=== PATIENT | female | born 1990 | race Caucasian/White ===

== ENCOUNTER 2022-11-19 10:55 | Outpatient (REF) | payer BC, SELFPAY ==
[2022-11-19 11:10] LABS: MANUAL DIFF FLAG NO
[2022-11-19 11:27] LABS: Basophils Percent Auto 0.5 % (0-2); Eosinophils Absolute Auto 0.2 X10*3/uL (0.0-0.4); Eosinophils Percent Auto 2.6 % (0-4); Hematocrit 40.5 % (37.0-47.0); Hemoglobin 13.5 g/dl (12.0-16.0); Imm Gran Abs Auto 0.02 X10*3/uL (0.00-0.03); Imm Gran Pct Auto 0.3 % (0.0-0.4); Lymphocytes Percent Auto 33.8 % (20-40); Mean Corpuscular HGB Conc 33.3 g/dl (31.0-35.0); Mean Corpuscular Hemoglobin 31.2 pg (27.0-33.0); Mean Corpuscular Volume 93.5 fL (80.0-98.0); Mean Platelet Volume 10.9 fL (9.4-12.3); Monocytes Absolute Auto 0.4 X10*3/uL (0.1-1.2); Monocytes Percent Auto 6.8 % (2-11); Neutrophils Absolute Auto 3.4 x10*3/uL (2.0-8.3); Platelet Count 224 X10*3/uL (160-400); Red Blood Count 4.33 X10*6/uL (4.20-5.50); Red Cell Distribution Width 11.9 % (11.0-16.0)
[2022-11-19 11:28] LABS: Appearance Urine Clear; Color Urine Yellow; Glucose Urine UA Negative (Negative); Leukocyte Esterase Urine Trace (Negative); Nitrite Urine Negative (Negative); PH 6.5 (5.0-9.0); UMIC TRIGGER UACC YES; Urine Blood Negative (Negative); Urine Ketones Negative (Negative); Urine Protein Negative (Neg-Trace)
[2022-11-19 11:41] LABS: Bacteria Urine 1+ (None Seen); Hyaline Casts Urine 0-2 /LPF (0-2); WBC Urine 0-5 /HPF (0-5)
[2022-11-19 12:02] LABS: Alanine Aminotransferase 15 U/L (0-31); Alkaline Phosphatase 52 U/L (39-117); Anion Gap 11 (12-20); Aspartate Amino Transferase 18 U/L (5-31); Bilirubin Total 0.7 mg/dL (0.0-1.0); Blood Urea Nitrogen 11 mg/dL (9-16); Calcium 9.3 mg/dL (8.4-10.2); Carbon Dioxide 27 mmol/L (22-29); Chloride 106 mmol/L (96-108); Cholesterol 135 mg/dL; Estimated Glomerular Filt Rate > 60; Glucose Fasting 84 mg/dL (60-99); HDL Cholesterol 72 mg/dL; LDL Cholesterol Calculated 49 mg/dl; Potassium 3.9 mmol/L (3.3-5.1); Sodium 140 mmol/L (135-145); Total Protein 6.4 g/dL (6.5-8.0); Triglycerides 72 mg/dL
== END 2022-11-19 10:56 | disposition home or self-care (01) ==
LOC: HO.LNP 10:55
PROVIDERS: Visit Provider Internal Medicine
DX: Z00.00 Encounter for general adult medical examination without abnormal findings (principal)
CPT/HCPCS: 80053; 80061; 81001; 85025

== ENCOUNTER 2022-11-22 12:37 | Outpatient (REF) | payer BC, SELFPAY ==
[2022-11-22 13:22] LABS: Appearance Urine Clear; Color Urine Yellow; Glucose Urine UA Negative (Negative); Leukocyte Esterase Urine Negative (Negative); Nitrite Urine Negative (Negative); PH 6.5 (5.0-9.0); Specific Gravity - Urine <= 1.005 (1.005-1.025); Urine Blood Negative (Negative); Urine Ketones Negative (Negative); Urine Protein Negative (Neg-Trace)
[2022-11-22 13:26] LABS: Bacteria Urine None Seen (None Seen); Hyaline Casts Urine 0-2 /LPF (0-2); RBC Urine 0-2 /HPF (0-2); Squamous Epithelial Cell Urine 0-2 /HPF (0-2); WBC Urine 0-5 /HPF (0-5)
== END 2022-11-22 12:38 | disposition home or self-care (01) ==
LOC: HO.LNP 12:37
PROVIDERS: Visit Provider Internal Medicine
DX: R31.9 Hematuria, unspecified (principal)
CPT/HCPCS: 81001

== ENCOUNTER 2023-11-21 10:49 | Outpatient (REF) | payer BC, SELFPAY ==
[2023-11-21 10:51] LABS: MANUAL DIFF FLAG NO
[2023-11-21 11:04] LABS: Appearance Urine Clear; Color Urine Yellow; Glucose Urine UA Negative (Negative); Leukocyte Esterase Urine Negative (Negative); Nitrite Urine Negative (Negative); Specific Gravity - Urine 1.025 (1.005-1.025); UMIC TRIGGER UACC YES; Urine Blood Trace (Negative); Urine Ketones 15 mg/dL (Negative); Urine Protein Negative (Neg-Trace)
[2023-11-21 11:09] LABS: Basophils Percent Auto 0.7 % (0-2); Eosinophils Absolute Auto 0.2 X10*3/uL (0.0-0.4); Eosinophils Percent Auto 2.8 % (0-4); Hematocrit 42.9 % (37.0-47.0); Hemoglobin 14.4 g/dl (12.0-16.0); Imm Gran Abs Auto 0.02 X10*3/uL (0.00-0.03); Imm Gran Pct Auto 0.3 % (0.0-0.4); Lymphocytes Absolute Auto 1.8 X10*3/uL (1.2-4.9); Lymphocytes Percent Auto 28.9 % (20-40); Mean Corpuscular HGB Conc 33.6 g/dl (31.0-35.0); Mean Corpuscular Hemoglobin 31.6 pg (27.0-33.0); Mean Corpuscular Volume 94.1 fL (80.0-98.0); Mean Platelet Volume 11.6 fL (9.4-12.3); Monocytes Absolute Auto 0.6 X10*3/uL (0.1-1.2); Neutrophils Absolute Auto 3.5 x10*3/uL (2.0-8.3); Neutrophils Percent Auto 57.3 % (45-73); Platelet Count 192 X10*3/uL (160-400); Red Blood Count 4.56 X10*6/uL (4.20-5.50); Red Cell Distribution Width 11.7 % (11.0-16.0); White Blood Count 6.1 X10*3/uL (4.8-10.8)
[2023-11-21 11:11] LABS: Bacteria Urine 1+ (None Seen); WBC Urine 0-5 /HPF (0-5)
[2023-11-21 11:16] LABS: Alanine Aminotransferase 14 U/L (0-31); Albumin Level 4.4 g/dL (3.5-5.0); Alkaline Phosphatase 54 U/L (39-117); Anion Gap 12 (12-20); Aspartate Amino Transferase 13 U/L (5-31); Bilirubin Total 0.5 mg/dL (0.0-1.0); Blood Urea Nitrogen 13 mg/dL (9-16); Calcium 9.5 mg/dL (8.4-10.2); Carbon Dioxide 24 mmol/L (22-29); Chloride 109 mmol/L (96-108); Cholesterol 134 mg/dL (<200); Estimated Glomerular Filt Rate > 60; Glucose Fasting 82 mg/dL (60-99); HDL Cholesterol 71 mg/dL (>40); LDL Cholesterol Calculated 49 mg/dL (<100); Sodium 141 mmol/L (135-145); Total Protein 6.9 g/dL (6.5-8.0); Triglycerides 73 mg/dL (<150)
== END 2023-11-21 10:50 | disposition home or self-care (01) ==
LOC: HO.LNP 10:49
PROVIDERS: Visit Provider Internal Medicine
DX: Z00.00 Encounter for general adult medical examination without abnormal findings (principal)
CPT/HCPCS: 80053; 80061; 81001; 85025

== ENCOUNTER 2024-05-12 12:57 | Outpatient (REF) | payer BC, SELFPAY ==
[2024-05-12 15:41] LABS: C Reactive Protein < 0.04 mg/dL (< or = 0.50)
[2024-05-12 15:56] LABS: TSH reflex Free T4 0.91 uIU/mL (0.32-4.0)
[2024-05-12 16:10] LABS: Folate 12.6 ng/mL (> or = 4.0); Vitamin B12 359 pg/mL (200-900)
--- OUTSIDE RECORDS SUMMARY | 2024-05-12 16:15 | XMS_ITS | Data Portability ---
Author Organization MORIS Phillips [address] Address [address] [place] [address] Care Team Providers Care Filter Tender Name Role Phone AAMIR CHONG Primary Care Provider Assessment Encounter Date Assessment Date Assessment LastModified by Organization Details LastModified Time 03/22/2024 03/22/2024 Patient was seen in the office today for nausea. Reviewed history regarding recent illness, medications, symptoms, and physical exam. Studies ordered as below. Discussed plan with patient, who expresses understanding. Follow up as noted below. Based on you exam and presentation I am diagnosing you with a viral gastroenteritis. This should resolve on its own without any intervention in 1-5 days. This may be contagious to try and avoid family members while you are sick. Use a seperate bathroom if possible. These are my recommendations to help with your symptoms and help you recover: 1. Drink plenty of fluid and stay hydrated. 2. Wash hands and home surfaces regularly. 3. Do not share food or drinks 4. Try to eat foods like toast, chicken broth, bananas. 5. Stay away from Gatorade, but you can drink pedialyte, soda, or water. 6. Avoid Dairy I would be seen again if you develop: 1. Severe abdominal pain 2. Vomiting more than 48 hours 3. Fever > 101.0 4. Blood in Stool 5. Blood in Urine. Thank you for using [employer], please feel free to contact us if you have any questions or concerns. darvin Not available 03/22/2024 20:13:31 Plan of Treatment Reminders Order Date Submit Date Provider Last Modified By Organization Details Last Modified Time Details Appointments None recorded. Lab urinalysis, dipstick 2023 024 EMELI mendoza [address], [address] [place], [address], 20:16:39 test, urine 2023 EMELI mendoza [address], [address] [place], [address], 20:16:59 Referral None recorded. Procedures None recorded. Surgeries None recorded. Imaging None recorded. Medication Orders Imodium A-D 2 mg tablet 2023 [id number], [address], [place], [id number], 4 20:13:40 ondansetron 4 mg disintegrat ing tablet 2023 [id number], [address], [place], [id number], 4 20:13:42 omeprazole 40 mg capsule,del ayed release 2023 [id number], [address], [place], [id number], 4 20:13:42 Patient TargetsNo targets recorded. Patient Instructions Encounter Date Encounter Id Patient Instructions Last Modified By Organization Details Last Modified Time 03/22/2024 [id number] nausea and vomiting: care instructions ronchaga Not available 03/22/2024 20:13:34 diarrhea: care instructions ronchaga Not available 03/22/2024 20:13:34 nausea and vomiting: care instructions ronchaga Not available 03/22/2024 20:13:33 Try small amounts of clear liquids frequently. If vomiting occurs, wait 30-60 minutes before trying clear liquids again. Once you are able to tolerate clear liquids for at least 6 hours without vomiting, you can advance to a soft diet consisting of foods such as bananas, rice, applesauce, toast, crackers, and other foods rich in carbohydrates and low on fats and spices. If the diet is tolerated for 12-24 hours, you can slowly add other foods to your diet. If vomiting occurs, you should go back to clear liquids only and work your way back to a normal diet as outlined above. If much worse, you should seek treatment immediately. fckatia Not available 03/22/2024 19:36:02 Reason for Referral None Reported. Results Created Date Observation Date Name Description Value Unit Range Abnormal Flag Note LastModifiedBy Organization Detail LastModifiedTime 03/22/20 24 03/22/2024 pregn ronaldo test, urine Unknown Analyte negati ve Not Available [address], [address], 03/22/2024 19:45:17 03/22/20 24 03/22/2024 pregn ronaldo test, urine Unknown Analyte N Not Available [address], [address], 03/22/2024 19:45:17 03/22/20 24 03/22/2024 pregn ronaldo test, urine Unknown Analyte YES Not Available [address], [address], 03/22/2024 19:45:17 03/22/20 24 03/22/2024 urina lysis , dipst ick Unknown Analyte Normal = light yellow Not Available [address], [address], 03/22/2024 19:44:45 03/22/20 24 03/22/2024 urina lysis , dipst ick Unknown Analyte Normal = clear Not Available [address], [address], 03/22/2024 19:44:45 03/22/20 24 03/22/2024 urina lysis , dipst ick Unknown Analyte Normal = negati ve Not Available [facility] [address] [place] [address], [address], 03/22/2024 19:44:45 03/22/2003/22/2024 urina lysis , dipst ick Unknown Analyte Negati ve Not Available [facility] [address] [place] [address], [address], 03/22/2024 19:44:45 03/22/2003/22/2024 urina lysis , dipst ick Unknown Analyte Normal = Negati ve Not Available [facility] [address] [address] [place] [address], [address], 03/22/2024 19:44:45 03/22/2003/22/2024 urina lysis , dipst ick Unknown Analyte Negati ve Not Available [facility] [address] [place] [address], [address], 03/22/2024 19:44:45 03/22/20 24 03/22/2024 urina lysis , dipst ick Unknown Analyte Normal = Negati ve Not Available [facility] [address] [place] [address], [address], 03/22/2024 19:44:45 03/22/20 24 03/22/2024 urina lysis , dipst ick Unknown Analyte Normal = 1.010, 1.015, 1.020 Not Available [facility] [address] [place] [address], [address], 03/22/2024 19:44:45 03/22/2003/22/2024 urina lysis , dipst ick Unknown Analyte Normal = Negati ve Not Available [facility] [address] [place] [address], [address], 03/22/2024 19:44:45 1203/22/2024 urina lysis , dipst ick Unknown Analyte Small Not Available [facility] [address] [place] [address], [address], 03/22/2024 19:44:45 03/22/20 24 03/22/2024 urina lysis , dipst ick Unknown Analyte Normal = 6.5, 7.0, 7.5, 8.0 Not Available [facility] [address] [place] [address], [address], 03/22/2024 19:44:45 03/22/2003/22/2024 urina lysis , dipst ick Unknown Analyte Normal = Negati ve Not Available [facility] [address] [place] [address], [address], 03/22/2024 19:44:45 03/22/20 24 03/22/2024 urina lysis , dipst ick Unknown Analyte Normal = 0.2, 1.0 Not Available [facility] [address] [place] [address], [address], 03/22/2024 19:44:45 03/22/20 24 03/22/2024 urina lysis , dipst ick Unknown Analyte Normal = Negati ve Not Available [facility] [address] [place] [address], [address], 03/22/2024 19:44:45 03/22/20 24 03/22/2024 urina lysis , dipst ick Unknown Analyte Negati ve Not Available [facility] [address] [place] [address], [address], 03/22/2024 19:44:45 03/22/20 24 03/22/2024 urina lysis , dipst ick Unknown Analyte Normal = Negati ve Not Available [facility] [address] [place] [address], [address], 03/22/2024 19:44:45 03/22/20 24 03/22/2024 urina lysis , dipst ick Unknown Analyte Negati ve Not Available [facility] [address] [place] [address], [phone], 03/22/2024 19:44:45 03/22/20 24 03/22/2024 urina lysis , dipst ick Unknown Analyte Yellow Not Available [facility], [address], 03/22/2024 19:44:45 03/22/20 24 03/22/2024 urina lysis , dipst ick Unknown Analyte Clear Not Available [address], [address], 03/22/2024 19:44:45 03/22/20 24 03/22/2024 urina lysis , dipst ick Unknown Analyte Negati ve Not Available [facility] [address] [place] [address], [address], 03/22/2024 19:44:45 03/22/20 24 03/22/2024 urina lysis , dipst ick Unknown Analyte 1.015 Not Available [address], [address], 03/22/2024 19:44:45 03/22/20 24 03/22/2024 urina lysis , dipst ick Unknown Analyte 5.5 Not Available [address], [address], 03/22/2024 19:44:45 03/22/20 24 03/22/2024 urina lysis , dipst ick Unknown Analyte Negati ve Not Available [facility] [address] [place] [address], [address], 03/22/2024 19:44:45 03/22/2003/22/2024 urina lysis , dipst ick Unknown Analyte 0.2 E.U./d L Not Available [address] [place] [place], [address], 03/22/2024 19:44:45 Result Notes None recorded. Problems Name Problem SNOMED Code Status Onset Date Resolution Date Notes Provider Name and Address Organization Details Recorded Time Viral gastroenteriti s 512853484 Active 2023 ERIC SURESH NP [address] , [place], [address], [place] - [facility] 4 20:10:01 Nausea and vomiting 25850596 Active 2023 ERIC SURESH NP [address] , [place], [address], [place] - [facility] 4 20:10:21 Diarrhea 11172788 Active 2023 ERIC SURESH NP [address] , [place], [address], [place] - [facility] 4 20:10:47 Acute gastritis 64705929 Active 2023 ERIC SURESH NP [address] , [place], [address], [place] - [facility] 4 20:12:33 Problem Notes None recorded. Medical Equipment None Reported. Allergies No known drug allergies Medications Name Sig Start Date Stop Date Status Note LastModified by Organization Details LastModified Time omeprazole 40 mg capsule,del ayed release Take 1 capsule every day by oral route for 14 days. 2023 active Not Available Not Available Not Avai lable Imodium A-D 2 mg tablet Take 1 tablet 4 times a day by oral route for 3 days. 2023 active Not Available Not Available Not Avai lable hyoscyamine ER 0.375 mg tablet,exte nded release,12 hr TAKE 1 TABLET BY MOUTH EVERY 12 HOURS X 7 DAYS 03/22 completed Not Available Not Available Not Available ondansetron 4 mg disintegrat ing tablet Place 1 tablet 3 times a day by transling ual route for 5 days. 2023 active Not Available Not Available Not Avai lable Vitals Date Recorded Body height Provider Name an d Address Organization Details Last Updated DateTime 03/22/2024 160.02 cm Juvencio Davies PA - [facility] 03/22/2024 19:38:45 Date Recorded Body mass index (BMI) Body weight Provider Name and Address Organization Details Last Updated DateTime 03/22/2024 24.8 kg/m2 26517.93 g Juvencio Davies PA - [facility] 03/22/2024 19:38:52 Date Recorded Oxygen saturation Oxygen saturation in Arterial blood by Pulse oximetry Provider Name and Address Organization Details Last Updated DateTime 03/22/2024 99 % 99 % Juvencio Davies PA - [facility] 03/22/2024 19:40:01 Date Recorded Heart rate Provider Name an d Address Organization Details Last Updated DateTime 03/22/2024 99 /min Juvencio Davies PA - [facility] 03/22/2024 19:40:57 Date Recorded Respiratory rate Provider Name a nd Address Organization Details Last Updated DateTime 03/22/2024 18 /min Juvencio Davies PA - [facility] 03/22/2024 19:40:59 Date Recorded Body temperature Provider Name a nd Address Organization Details Last Updated DateTime 03/22/2024 97 [degF] Juvencio Davies PA - [facility] 03/22/2024 19:41:05 Date Recorded Systolic blood pressure Diastolic blood pressure Provider Name and Address Organization Details Last Updated DateTime 03/22/2024 93 mm[Hg] 59 mm[Hg] Juvencio Davies PA - [facility] 03/22/2024 19:39:58 Social History Question Answer Notes LastModified by Organizat ion Details LastModified Time Tobacco Smoking Status Never Smoker Juvencio hurt PA - [facility] 03/22/2024 19:43:13 Are You Currently Employed? Yes [employer] Information not available 03/22/2024 Have You Had A Flu Shot This Season? No Information not available 03/22/2024 If No, Would You Like A Flu Shot Today? No Information not available 03/22/2024 What Is Your Water Source? City Information not available 03/22/2024 What Is Your Heat Source? Gas Information not available 03/22/2024 What Is Your Relationship Status? Single Information not available 03/22/2024 Do You Use Any Illicit Or Recreational Drugs? No Information not available 03/22/2024 Have You Recently Traveled Abroad? No Information not available 03/22/2024 Sex: Unknown Functional Status None recorded. Mental Status None recorded. Family History Relationship Description Onset Age of this Age Resolved Age Notes LastModified by Organization Details LastModified Time Father No current problems or disability fcuevasgonzal ez Not available 03/22/2024 19:42:49 Mother No current problems or disability fcuevasgonzal ez Not available 03/22/2024 19:42:49 Medical History No medical history recorded. Gynecological History Statement/Question Response Is there any chance of ? No Obstetrics History GPAL:G 0 P 0 0 0 0 Immunizations Vaccine Type Date Status Note Provider Nam e and Address Organization Details Recorded Time COVID-19, mRNA, LNP-S, PF, 30 mcg/0.3 mL dose 07/29/2020 completed Juvencio hurt, [place] - [facility] 03/22/2024 19:41:11 COVID-19, mRNA, LNP-S, PF, 30 mcg/0.3 mL dose 08/19/2020 completed Juvencio hurt, [place] - [facility] 03/22/2024 19:41:12 COVID-19, mRNA, LNP-S, PF, 30 mcg/0.3 mL dose, lorena-sucrose 05/30/2021 completed Juvencio hurt, [place] - [facility] 03/22/2024 19:41:12 Tdap 10/12/2013 completed MORIS Clayton - [facility] 03/22/2024 19:41:12 Past Encounters Encounter ID Performer Location Encounter Start Date Encounter Closed Date Diagnosis/Indication Diagnosis SNOMED-CT Code Diagnosis ICD10 Code Diagnosis Note [id number] [address] [place] [address] 03/15/2017 11:30:01 03/15/2017 12:38:47 [id number] [address] [place] [address] 12/09/2018 11:57:02 12/09/2018 13:11:27 [id number] [address] [place] [address] 12/16/2020 14:44:33 12/16/2020 16:21:49 [id number] [address] [place] [address] 10/19/2017 18:03:54 10/19/2017 18:39:46 [id number] [address] [place] [address] 03/23/2019 17:40:37 03/23/2019 18:44:42 [id number] [address] [place] [address] 04/20/2020 18:05:29 04/20/2020 19:44:58 [id number] [address] [place] [phone] 09/05/2017 09:49:31 09/05/2017 11:56:51 [id number] ERIC SURESH NP [address] [place] [address] 03/22/2024 19:17:22 03/22/2024 20:14:01 Viral gastroenteritis 561347235 A08.4 Nausea and vomiting 1693 1999 R11.2 Diarrhea 84295693 R19.7 Acute gastritis 15432233 K29.00 Health Concerns Section Related Observation LastModified by Organization Detai ls LastModified Time None Recorded Concern Status LastModified by Organization Details LastModified Time None Recorded Advance Directives Directive None Recorded Payers Encounter Date Sequence Insurance Name Policy Number Policy Olivares Covered Member ID Olivares Member ID Guarantor Name 12/09/2018 1 [place] [facility] ([place]) [id number] Kae J Chlastawa [id number] Kae Chlastawa 03/23/2019 1 [place] [facility] ([place]) [id number] Kae J Chlastawa [id number] Kae Chlastawa 04/20/2020 1 [place] [employer] [place]) [id number] Kae J Chlastawa [id number] Kae Chlastawa 12/16/2020 1 [place] [facility] ([place]) [id number] Kae J Chlastawa [id number] Kae Chlastawa 03/22/2024 1 [place] [id number] Kae J Chlastawa [id number] Kae Chlastawa Notes Date Note Type Note Provider Name and Address Organization Details Recorded Time 03/22/2024 text/html Nausea / Vomitin g UCReported bypatient.Severity :moderate Duration:1 days Onset/Timing:inter mittent Context:no one else with similar symptoms Alleviating Factors:nothing gives relief pt reports nausea, vomiting diarrheas after eating food yesterdayhas been able to drink small fluidshas been having epigastric pain ERIC SURESH NP [address] [place], [address], [place] - [facility] 03/22/2024 20:18:11 OBGyn Episode No OBEpisode recorded.
[2024-05-13 16:28] LABS: Transglutaminase IgA <1.0 U/mL
[2024-05-16 06:48] LABS: Vitamin D 25-OH, D2 <4 ng/mL; Vitamin D 25-OH, D3 46 ng/mL; Vitamin D 25-OH, Total 46 ng/mL (30-100)
== END 2024-05-12 12:58 | disposition home or self-care (01) ==
LOC: HO.LAB 12:57
PROVIDERS: PCP Nurse Practitioner Family; Visit Provider Nurse Practitioner Family
DX: K59.04 Chronic idiopathic constipation (principal); R14.0 Abdominal distension (gaseous); R10.12 Left upper quadrant pain; K52.9 Noninfective gastroenteritis and colitis, unspecified; K21.9 Gastro-esophageal reflux disease without esophagitis; E55.9 Vitamin D deficiency, unspecified
CPT/HCPCS: 36415; 82306; 82607; 82746; 84443; 86140; 86364

== ENCOUNTER 2024-05-12 12:57 | Outpatient (AMB) | payer BC, SELFPAY ==
--- NOTE | 2024-05-12 13:05 | MHC.OFFVIS ---
Vital Signs 05/12/24 13:08 Height 5 ft 3 in Weight 138 lb BMI 24.4 BP 93/64 Blood Pressure Location Rt brachial Position Sitting Pulse 79 Intake Visit Reasons: Chronic Constipation Intake Note: New patient in office today for chronic constipation. CC: Patient reports constipation sometimes and other times diarrhea happening for ever . Patient unsure if she's had blood in the stool once or it was her period. Patient also reports having hemorrhoids. She also c/o constant abdominal pain, abd bloating, and feeling gassy. She reports GERD when she consumes red sauce or drinks bubbly beverages. Diagnosed with IBS with diarrhea by Dr. Feliz. 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 Patient was sent by her PCP. Patient is reporting frequent abdominal bloating with occasional epigastric pain and cramping throughout her whole abdomen especially on left upper and left lower quadrant. Constant feeling like she has gas. Frequent constipation with diarrhea. Patient reports that specially when she travels she is having hard time going to the bathroom. Patient has tried MiraLax in the past without much of results. Patient reports that she is eating healthy. Patient makes herself smoothies, eats vegetables, and fruits. Takes supplements like colostrum. Patient denies melena, hematochezia, unintentional weight loss or ribbon like stools. Patient reports that when she was traveling at 1 point she has not had a bowel movement for over a week. On a daily basis patient will have frequent abdominal bulging, postprandial diarrhea and then constipation. Patient has tried [id number] laxatives like senna, however has not tried Dulcolax yet. Patient would like to see if she can regulate her bowels without medications. Patient reports that she is eating large amount of fiber. Patient admits to be eating beans, apples. Reports occasional acid reflux and epigastric pain when she eats tomatoes, tomato sauce or drinks champagne. Patient reports that she does not drink soda. [facility] Medical History Chronic idiopathic constipation Irritable bowel syndrome with diarrhea Migraine Surgical History H/O wisdom tooth extraction Family History Maternal Grandmother Lung cancer Maternal Aunt Leukemia Social History Alcohol intake: current Alcohol intake frequency: a few times a week Patient Tobacco Use Status: Never used Tobacco Review of Systems Const Denies weight gain and Denies weight loss ENT Reports no additional complaints, Denies dysphagia and Denies odynophagia Card Reports no additional complaints Resp Reports no additional complaints GI Reports abdominal pain (Epigastric), Denies belching, Denies melena, Reports bloating, Denies change in bowel habits, Reports constipation, Reports GI cramping, Denies dysphagia, Denies excessive flatus, Denies dyspepsia, Reports heartburn (Occasional), Denies diarrhea, Reports loose stools, Denies nausea, Denies odynophagia and Denies vomiting Reports no additional complaints Musc Reports no additional complaints Neuro Reports no additional complaints Psych Reports no additional complaints Endo Reports no additional complaints Physical Exam Vital Signs: Last Vital Signs Pulse 79 05/12/24 13:08 BP 93/64 05/12/24 13:08 BMI result Body Mass Index 24.4 Const General: healthy appearing, no acute distress and well developed Nutritional Appearance: well nourished Orientation/consciousness: patient oriented x3 Resp Effort & Inspection: normal respiratory effort, able to speak in complete sentences, no tracheal deviation and symmetric chest movement Auscultation: clear to auscultation bilaterally Cardio Rate: regular rate GI Inspection: Yes normal to inspection and No distended Palpation (GI): Soft to palpation, not firm, nontender and No hepatosplenomegaly present Auscultation: normal bowel sounds General: Yes no CVA tenderness Back/Spine/Pelvis Back: no CVA tenderness Skin General skin exam: elasticity normal, turgor normal and dry skin Neuro General: patient oriented x3 Psych Appearance: grossly normal Mental Status: mental status grossly normal Assessment & Plan Assessment & Plan (1) Postprandial abdominal bloating: Code(s): R14.0 - Abdominal distension (gaseous) (2) Abdominal pain, LUQ (left upper quadrant): Code(s): R10.12 - Left upper quadrant pain (3) Postprandial diarrhea: Code(s): K52.9 - Noninfective gastroenteritis and colitis, unspecified (4) Constipation: Code(s): K59.00 - Constipation, unspecified Qualifiers: Constipation type: chronic idiopathic constipation Qualified Code(s): K59.04 - Chronic idiopathic constipation (5) GERD (gastroesophageal reflux disease): Code(s): K21.9 - Gastro-esophageal reflux disease without esophagitis Qualifiers: Esophagitis presence: esophagitis presence not specified Qualified Code(s): K21.9 - Gastro-esophageal reflux disease without esophagitis Plan Occasional epigastric pain depending on what she eats and all mom bloating. Postprandial diarrhea. Patient will get her blood work done, transglutaminase, thyroid study, CRP, B12 and folate, CRP, vitamin-D level. Differentials include celiac, IBD, IBS with both C/D diverticulosis, malabsorption. Education provided to patient regards to low FODMAP diet. List of food recommended as well as list of food to avoid given to patient. We discussed trial of fiber with pre and probiotics. Patient was encouraged to drink plenty fluids. Increase activity to promote better bowel motility. Patient is having more sedentary lifestyle due to her job requirements. Most of the time she is sitting. Patient was encouraged to get up throughout the day and try to do some exercises, yoga. If she continues to have symptoms patient will be sent for colonoscopy and possible upper endoscopy. Is CRP positive will get fecal calprotectin. Patient will follow-up in 3 months. She will call our office if she will have ongoing or worsening GI symptoms. She is agreeable to this plan and verbalizes understanding of instructions. She was given the opportunity to ask questions and all questions answered. Thank you for allowing me to participate in her care Orders: Orders Transglutaminase IgA Today R10.9 - Unspecified abdominal pain TSH reflex Free T4 Today K59.00 - Constipation, unspecified C Reactive Protein Today K58.9 - Irritable bowel syndrome, unspecified Vitamin B12 and Folate Today R19.7 - Diarrhea, unspecified Vitamin D 25-OH (D2 and D3) Today E55.9 - Vitamin D deficiency, unspecified Coding Level of Care Code New Pt Level 4 (85338) Diagnoses Postprandial abdominal bloating R14.0 Abdominal pain, LUQ (left upper quadrant) R10.12 Postprandial diarrhea K52.9 Chronic idiopathic constipation K59.04 Constipation type: chronic idiopathic constipation Gastroesophageal reflux disease, unspecified whether esophagitis present K21.9 Esophagitis presence: esophagitis presence not specified Time Spent (min) 45 Comment 35 minutes spent with patient and 10 minutes spent reviewing her records
[2024-05-12 13:08] VITALS: BP 93/64; PULSE 79; BMI 24.4
--- OUTSIDE RECORDS SUMMARY | 2024-05-12 15:04 | XMS_ITS ---
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 Blending Plant Operator Name Role Phone Joesph Feliz Primary Care Provider Results Component Value Reference Range Notes Complete Blood Count Auto Di ff Reviewed date:11/21/2023 03:38:38 PM Interpretation: Performing Lab:[facility], [address] [place] [id number] Notes/Report: White Blood Count 6.1 4.8-10.8 X10*3/uL Red Blood Count 4.56 4.20-5.50 X10*6/uL Hemoglobin 14.4 12.0-16.0 g/dl Hematocrit 42.9 37.0-47.0 % Mean Corpuscular Volume 94.1 80.0-98.0 fL Mean Corpuscular Hemoglobin 31.6 27.0-33.0 pg Mean Corpuscular HGB Conc 33.6 31.0-35.0 g/dl Red Cell Distribution Width 11.7 11.0-16.0 % Platelet Count 192 160-400 X10*3/uL Mean Platelet Volume 11.6 9.4-12.3 fL Neutrophils Percent Auto 57.3 45-73 % Imm Gran Pct Auto 0.3 0.0-0.4 % Lymphocytes Percent Auto 28.9 20-40 % Monocytes Percent Auto 10.0 2-11 % Eosinophils Percent Auto 2.8 0-4 % Basophils Percent Auto 0.7 0-2 % NRBC Pct Auto 0.0 0.0-0.2 /100WBC Neutrophils Absolute Auto 3.5 2.0-8.3 x10*3/u L Imm Gran Abs Auto 0.02 0.00-0.03 X10*3/uL Lymphocytes Absolute Auto 1.8 1.2-4.9 X10*3/u L Monocytes Absolute Auto 0.6 0.1-1.2 X10*3/uL Eosinophils Absolute Auto 0.2 0.0-0.4 X10*3/u L Basophils Absolute Auto 0.0 0.0-0.2 X10*3/uL NRBC Abs Auto 0.000 0.0-0.012 X10*3/uL Comprehensive [place]. Panel Fa st Reviewed date:11/21/2023 03:38:21 PM Interpretation: Performing Lab:[address] [phone] Notes/Report: Sodium 141 135-145 mmol/L Potassium 4.0 3.3-5.1 mmol/L Chloride 109 96-108 mmol/L Carbon Dioxide 24 22-29 mmol/L Anion Gap 12 12-20 Blood Urea Nitrogen 13 9-16 mg/dL Creatinine 0.79 0.5-1.4 mg/dL Estimated Glomerular Filt Rate > 60 NOTE: For -[place]ong[place]ian individuals, multiply the result by 1.210. Chronic Kidney Disease: Estimated GFR < 60 mL/min/1.73m2 Severe Kidney Disease: Estimated GFR < 15 mL/min/1.73m2 Glucose Fasting 82 60-99 mg/dL Calcium 9.5 8.4-10.2 mg/dL Bilirubin Total 0.5 0.0-1.0 mg/dL Aspartate Amino Transferase 13 5-31 U/L Alanine Aminotransferase 14 0-31 U/L Total Protein 6.9 6.5-8.0 g/dL Albumin Level 4.4 3.5-5.0 g/dL Alkaline Phosphatase 54 39-117 U/L Lipid Panel Reviewed date:11/21/2023 03:31:55 PM Interpretation: Performing Lab:[address] [id number] Notes/Report: Triglycerides 73 <150 mg/dL Desirable Triglyceride: less than 150 mg/dL Borderline High Triglyceride 150-199 mg/dL High Triglyceride: 200-499 mg/dL Very High Triglyceride: greater than or equal to 5OO mg/dL Cholesterol 134 <200 mg/dL Desirable Cholesterol: less than 200 mg/dL Borderline High Cholesterol: 200-239 mg/dL High Cholesterol: greater than 239 mg/dL LDL Cholesterol Calculated 49 <100 mg/dL Desirable LDL: less than 100 mg/dL Near Optimal/Above Optimal LDL: 110-129 mg/dL Borderline High LDL: 130-159 mg/dL High LDL: 160-189 mg/dL Very High LDL: greater than or equal to 190 mg/dL HDL Cholesterol 71 >40 mg/dL Desirable HDL: greater than 40 mg/dL Note: This HDL assay may give artificially low results in patients with liver disease. UA ClnCatch+Micro w/rflx Cul t Reviewed date:11/28/2023 01:31:29 PM Interpretation:see back 11-28-2023 Performing Lab:[facility], [address] [place] [phone] Notes/Report: Urine, Clean Catch Color Urine Yellow Appearance Urine Clear PH 6.0 5.0-9.0 Glucose Urine UA Negative Negative mg/dL Urine Blood Trace Negative Specific [place] - Urine 1.025 1.005-1.025 Urine Protein Negative Neg-Trace mg/dL Urine Ketones 15 Negative mg/dL Nitrite Urine Negative Negative Leukocyte Esterase Urine Negative Negative RBC Urine 6-10 0-2 /HPF WBC Urine 0-5 0-5 /HPF Squamous Epithelial Cell Urine 6-10 0-2 /HPF Bacteria Urine 1+ None Seen Hyaline Casts Urine 3-5 0-2 /LPF REASON FOR VISIT yearly fasting labs Encounters Encounter Location Date Provider Diagnosis Joesph Feliz MD [address] [place] [address] [place] [phone] 11/21/2023 Joesph Feliz Blood tests for routine general physical examination Z00.00 Assessments Encounter Date Diagnosis (ICD Code) Assessment Notes Treatment Notes Treatment Clinical Notes Section Notes 11/21/2023 Blood tests for routine general physical examination (ICD-10 - Z00.00) Plan Of Treatment Next Appt Details Provider Name:Joesph baumann, 11/23/2024 07:30:00 AM, [address] [place] [address], [address], [place], [place], [phone], Provider Name:Joesph baumann, 11/30/2024 01:00:00 PM, [address] [facility], [address], [place], [place], [phone], Progress Notes * MARILY DUMASDOB:[birth year] (33 yo F)Acc No.[id number]:11/21/2023 Progress Note Patient:?MARILY DUMAS Provider:?Joesph Feliz MD :1990???Age:32 Y???Sex:Female D ate:11/21/2023 Address:[address] [place], [place] [id number] Subjective: * Chief Complaints: * ???1. Yearly fasting labs. * Medical History:? Objective: * Vitals:? Assessment: * Assessment: 1.?Blood tests for routine g eneral physical examination - Z00.00 (Primary)??? Plan: * Treatment: * Procedure Codes:?35608 VENIP UNCT, ROUTINE* * * The named appointment provid er may or may not be the originator of this progress note, and it is not deemed complete until electronically signed by the appointment provider. Sign off status: Pending * Provider:?Joesph Feliz MD Date:?0 11/21/2023 Generated for Virginia carrasco/Ezequiel/Lettyitting on:?05/12/2024 03:04 PM EST
--- OUTSIDE RECORDS SUMMARY | 2024-05-12 15:04 | XMS_ITS | Patient Health Record ---
Author Organization Joesph Feliz MD Address [address] [place], [place] [phone] Care Team Providers Care Retort Unloader Name Role Phone Joesph Feliz Primary Care Provider Allergies No Known Allergies Results Component Value Reference Range Notes Complete Blood Count Auto Di ff Reviewed date:11/21/2023 03:38:38 PM Interpretation: Performing Lab:[facility], [address] [place] [phone] Notes/Report: White Blood Count 6.1 4.8-10.8 X10*3/uL [...] NRBC Abs Auto 0.000 0.0-0.012 X10*3/uL Comprehensive [place]. Panel Fa st Reviewed date:11/21/2023 03:38:21 PM Interpretation: Performing Lab:[address] [id number] Notes/Report: Sodium 141 135-145 mmol/L Potassium 4.0 3.3-5.1 mmol/L Chloride 109 96-108 mmol/L Carbon Dioxide 24 22-29 mmol/L Anion Gap 12 12-20 Blood Urea Nitrogen 13 9-16 mg/dL Creatinine 0.79 0.5-1.4 mg/dL Estimated Glomerular Filt Rate > 60 NOTE: For -[place]igerien individuals, multiply the result by 1.210. Chronic [...] Panel Reviewed date:11/21/2023 03:31:55 PM Interpretation: Performing Lab:[address] [phone] Notes/Report: Triglycerides 73 <150 mg/dL Desirable Triglyceride: [...] date:11/28/2023 01:31:29 PM Interpretation:see back 11-28-2023 Performing Lab:[facility], [address] [place] [phone] Notes/Report: Urine, Clean Catch Color Urine Yellow Appearance Urine Clear PH 6.0 5.0-9.0 Glucose Urine UA Negative Negative mg/dL Urine Blood Trace Negative Specific [place] - Urine 1.025 1.005-1.025 Urine Protein Negative Neg-Trace mg/dL Urine Ketones 15 Negative mg/dL Nitrite Urine Negative Negative Leukocyte Esterase Urine Negative Negative RBC Urine 6-10 0-2 /HPF WBC Urine 0-5 0-5 /HPF Squamous Epithelial Cell Urine 6-10 0-2 /HPF Bacteria Urine 1+ None Seen Hyaline Casts Urine 3-5 0-2 /LPF Reason For Referral Reason chronic constipation Diagnosis 1 Chronic constipation (K59.09) Referral Organization Joesph Feliz MD Referring Provider First Name Joesph Referring Provider Last Name Tray Referring Provider Speciality Internal M edicine Referred Provider NICOLE MORRISON Referred Provider Specialty Gastroentero logy General Notes Geraldine Mejia 1 02:32:25 PM >info faxedRoberto Annette 02/06/2024 01:45:53 PM >was told being worked on, Geraldine Mejia 02/10/2024 11:47:34 AM >appt is Roberto Costa Annette 02/13/2024 09:56:44 AM > referral mailed to patient Referral Priority Routine Referral Appointment Date 05/12/2024 Medications Medication SIG (Take, Route, Frequency, Duration) Notes Start Date End Date Status Imitrex 50 MG 1 tablet as needed, may take second dose at least 2 hours after first dose up to 4 tablets per day as needed Orally Once a day for 30 day(s) 01/23/2024 Active Hyoscyamine Sulfate ER 0.375 MG 1 tablet Orally every 12 hrs for 7 days 06/17/2023 Not-Taking Naratriptan HCl 2.5 MG 1 tablet as neede d one time Orally Once a day for 10 days 11/17/2018 Not-Taking Immunizations Vaccine Route Administration Date Status Comme nts SARS-COV-2 Pfizer Unknown 07/29/2020 Administered SARS-COV-2 Pfizer Unknown 08/19/2020 Administered SARS-COV-2 Pfizer Unknown 05/30/2021 Administered Social History Tobacco Use: Social History Observation Description Date Details (start date - stop date) Never Smoker NA - NA Tobacco Use/Smoking Question Answer Notes Patient is a nonsmoker Additional Findings: Tobacco Non-User Cu rrent non-smoker, currently using no form of tobacco Alcohol Screen Question Answer Notes Did you have a drink contain ing alcohol in the past year? Yes How often did you have a dri nk containing alcohol in the past year? Monthly or less (1 point) How many drinks did you have on a typical day when you were drinking in the past year? 1 or 2 drinks (0 point) How often did you have 6 or more drinks on one occasion in the past year? Never (0 point) Points 1 Interpretation Negative Problems Problem Type SNOMED Code ICD Code Onset Dates Problem Status W/U Status Risk Notes Problem 715600791 Irritable bowel syndrome with diarrhea (K58.0) Active confirmed Problem 5188633 Migraine with aura and without status migrainosus, not intractable (G43.109) Active confirmed Problem 18794494 Chronic idiopathic constipation (K59.04) Active confirmed Vital Signs Blood pressure diastolic 60 mm Hg 01/23/2024 Height 64 in 01/23/2024 Blood pressure systolic 84 mm Hg 01/23/2024 Weight 141 lbs 11/28/2023 BMI 24.20 kg/m2 11/28/2023 Encounters Encounter Location Date Provider Diagnosis Joesph Feliz MD [address] [place] [address] [place] [phone] 11/28/2023 Joesph Bombardier Microscopic hematuri a R31.29 ; Annual physical exam Z00.00 and Encounter for general adult medical examination with abnormal findings Z00.01 Joesph Feliz MD [address] [place] [id number] 11/21/2023 Joesph Feliz Blood tests for routine general physical examination Z00.00 Joesph Feliz MD [address] [place] [phone] 06/17/2023 Joesph Feliz Irritable bowel syndrome with diarrhea K58.0 and Chronic idiopathic constipation K59.04 Joesph Feliz MD [address] [place] [phone] 06/24/2023 Joesph Feliz Irritable bowel syndrome with diarrhea K58.0 Joesph Feliz MD [address] [place] [id number] 01/23/2024 Joesph Feliz Chronic constipation K59.09 and Migraine with aura and without status migrainosus, not intractable G43.109 Assessments Encounter Date Diagnosis (ICD Code) Assessment Notes Treatment Notes Treatment Clinical Notes Section Notes 11/28/2023 Microscopic hematuria (ICD-10 - R31.29) had strained hard to urinate and same as last year. will continue to monitor, lab pending 11/28/2023 Annual physical exam (ICD-10 - Z00.00) labs reviewed and discussed with patient 11/21/2023 Blood tests for routine general physical examination (ICD-10 - Z00.00) 06/17/2023 Irritable bowel syndrome with diarrhea (ICD-10 - K58.0) patient verbalized understanding of medication and directions for use 06/17/2023 Chronic idiopathic constipation (ICD-10 - K59.04) 06/24/2023 Irritable bowel syndrome with diarrhea (ICD-10 - K58.0) doing well/ was probably travelers diarrhea 01/23/2024 Chronic constipation (ICD-10 - K59.09) only happens on vacation. 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 never took hyosciamen/ referral to gi at [facility] [place] 11/28/2023 Encounter for general adult medical examination with abnormal findings (ICD-10 - Z00.01) 01/23/2024 Migraine with aura and without status migrainosus, not intractable (ICD-10 - G43.109) patient verbalized undersing ofd medication and directions for use Plan Of Treatment Next Appt Details Provider Name:Joesphjose Lim ier, 11/23/2024 07:30:00 AM, [address] [place] [address], [address], [place], [place], [phone], Provider Name:Joesph Hermelindo Raphael ier, 11/30/2024 01:00:00 PM, [address] [place] [address], [place] [address], [place], [place], [phone], Insurance Providers Payer Name Payer Address Payer Phone Subscriber Number Group Number Insured Name Patient Relationship to Insured Coverage Start Date Coverage End Date [employer] [address] [place], [place] [phone] [id number] MARILY CELIS Self - patient is the insured
--- OUTSIDE RECORDS SUMMARY | 2024-05-12 15:04 | XMS_ITS ---
Author Organization Joesph Feliz MD Address [address] [place], [place] [phone] Care Team Providers Care Weatherization Technician Name Role Phone Joesph Feliz Primary Care Provider [phone] Allergies No Known Allergies REASON FOR VISIT annual visit/ must see hematuria Medications Medication SIG (Take, Route, Frequency, Duration) Notes Start Date End Date Status Hyoscyamine Sulfate ER 0.375 MG 1 tablet Orally every 12 hrs for 7 days 06/17/2023 Not-Taking Naratriptan HCl 2.5 MG 1 tablet as neede d one time Orally Once a day for 10 days 11/17/2018 Not-Taking Social History Tobacco Use: Social History Observation [...] Never (0 point) Points 1 Interpretation Negative Vital Signs Blood pressure systolic 102 mm Hg 11/28/19 24 Blood pressure diastolic 60 mm Hg 024 Height 64 in 11/28/2023 Weight 141 lbs 11/28/2023 BMI 24.20 kg/m2 11/28/2023 Encounters Encounter Location Date Provider Diagnosis Joesph Feliz MD [address] [place] [address] [place] [id number] 11/28/2023 Joesph Feliz Microscopic hematuria R31.29 ; Annual physical exam Z00.00 and Encounter for general adult medical examination with abnormal findings Z00.01 Assessments Encounter Date Diagnosis (ICD Code) Assessment Notes Treatment Notes Treatment Clinical Notes Section Notes 11/28/2023 Microscopic hematuria (ICD-10 - R31.29) had strained hard to urinate and same as last year. will continue to monitor, lab pending 11/28/2023 Annual physical exam (ICD-10 - Z00.00) labs reviewed and discussed with patient 11/28/2023 Encounter for general adult medical examination with abnormal findings (ICD-10 - Z00.01) Plan Of Treatment Treatment Notes Assessment Notes Microscopic hematuria had strained hard to urinate and same as last year. will continue to monitor, lab pending Annual physical exam labs reviewed and d iscussed with patient Next Appt Details Follow Up: 1 Year, Reason: Provider Name:Joesph baumann, 11/23/2024 07:30:00 AM, [address] [place] [address], Suite [facility], [place], [place], [phone], Provider Name:Joesph baumann, 11/30/2024 01:00:00 PM, [address] [place] [address], Suite [facility], [place], [place], [phone], Progress Notes * MARILY DUMASDOB:[birth year] (33 yo F)Acc No.[id number]:11/28/2023 Progress Notes Patient:?TIMOTHY DUMASIA Provider:?Joesph Feliz MD :1990???Age:32 Y???Sex:Female D ate:11/28/2023 Address:[address] [place], [place] [phone] Subjective: * Chief Complaints: * ???Annual visit/ must see he maturia * HPI: ???Depression Screening:?PHQ-9?Little interest or pleasure in doing things?Not at all,?Feeling down, depressed, or hopeless?Not at all,?Trouble falling or staying asleep, or sleeping too much?Not at all,?Feeling tired or having little energy?Not at all,?Poor appetite or overeating?Not at all,?Feeling bad about yourself or that you are a failure, or have let yourself or your family down?Not at all,?Trouble concentrating on things, such as reading the newspaper or watching television?Not at all,?Moving or speaking so slowly that other people could have noticed; or the opposite, being so fidgety or restless that you have been moving around a lot more than usual?Not at all,?Thoughts that you would be better off or of hurting yourself in some way?Not at all,?Total Score?0.?Interpretation and Intervention?Depression Screening Findings?Negative,?Follow-Up for Depression?: review of PHQ-9 found negative result, no follow-up needed.?Communication Needs:?Communication Needs?Does the patient have a hearing impairment?No,?Does the patient have a vision impairment??Yes,?If yes, what is the vision impairment??Glasses,?Does the patient have a cognition impairment??No.?SDOH Questions:?SDOH Questions?In the past year have you been worried about losing housing??No,?In the past year have you or any family members you live with been unable to get any of the following when it was really needed? Check all that apply:?None.?Symptom(s):? patient is a 32 yo female here for yearly evaluation with review of recent labs and follow up of chronic issues. * ROS:?General/Constitutional:?Patient denies?fatigue , headache.?Change in appetite?denies.?Chills?denies.?Fever?denies.?Ophthalmologic:?Blurred vision?denies.?Discharge?denies.?Pain?denies.?ENT:?Patient denies?decreased sense of smell , any loss of taste , sore throat.?Decreased hearing?denies.?Sore throat?denies.?Swollen glands?denies.?Endocrine:?Cold intolerance?denies.?Excessive thirst?denies.?Heat intolerance?denies.?Weight loss?denies.?Respiratory:?Cough?denies.?Shortness of breath at rest?denies.?Shortness of breath with exertion?denies.?Wheezing?denies.?Cardiovascular:?Chest pain at rest?denies.?Chest pain with exertion?denies.?Irregular heartbeat?denies.?Shortness of breath?denies.?Gastrointestinal:?Abdominal pain?denies.?Change in bowel habits?denies.?Diarrhea?denies.?Nausea?denies.?Rectal bleeding?denies.?Vomiting?denies .?Genitourinary:?Blood in urine?denies.?Difficulty urinating?denies.?Frequent urination?denies.?Urinary incontinence?Denies.?Musculoskeletal:?Patient denies?muscle aches.?Painful joints?denies.?Weakness?denies.?Peripheral Vascular:?Patient denies?red and blue toes.?Skin:?Dry skin?denies.?Itching?denies.?Denies?Mole(s),? changes in moles, new moles or any lesions of concern.?Denies?Photosensitivity.?Rash?denies.?Neurologic:?Dizziness?denies.?Fainting?denies.?Headache?denies.? * Medical History:? * Surgical History:? * Hospitalization/Major Diagno stic Procedure:? * Family History:?Father: ellen e 44 yrs.?Mother: alive 45 yrs.?1 brother(s) . .? Fathjer- Healthy Mother -Healthy, Denies mental health/substance abuse family history, Denies mental health/substance abuse family history. * Social History:?Tobacco Use:?Tobacco Use/Smoking?Patient is a?nonsmoker,?Additional Findings: Tobacco Non-User?Current non-smoker, currently using no form of tobacco.?Drugs/Alcohol:?Alcohol Screen?Did you have a drink containing alcohol in the past year??Yes,?How often did you have a drink containing alcohol in the past year??Monthly or less (1 point),?How many drinks did you have on a typical day when you were drinking in the past year??1 or 2 drinks (0 point),?How often did you have 6 or more drinks on one occasion in the past year??Never (0 point),?Points?1,?Interpretation?Negative.?Miscellaneous:?Caffeine: yes, frequency:, 3-4 cups per day. no Children. Community involvements: yes. Exercise: yes, kickball kickboxing walks her dogs. Marital status: . Occupation: weeks/months/years, unemployed,employed. Pets: cats: dogs:2 dogs 2 cats. Travel outside of the [place]: yes, [place]. * Medications:?Not-Taking/[facility] yoscyamine Sulfate ER 0.375 MG Tablet Extended Release 12 Hour 1 tablet Orally every 12 hrsNaratriptan HCl 2.5 MG Tablet 1 tablet as needed one time Orally Once a dayMedication List reviewed and reconciled with the patientNot-Taking/PRN Hyoscyamine Sulfate ER 0.375 MG Tablet Extended Release 12 Hour 1 tablet Orally every 12 hrsNot-Taking/PRN Naratriptan HCl 2.5 MG Tablet 1 tablet as needed one time Orally Once a dayMedication List reviewed and reconciled with the patient * Allergies:?N.K.D.A.yes[Aller gies Verified] Objective: * Vitals:?Ht: 64, Wt:141, BMI: 24.20, BP:102/60. * ???Past Orders: ???Lab:Complete Blood Count Auto Diff (Order Date - 11/21/2023) (Collection Date - 11/21/2023) ? Value Reference Range ?White Blood Count 6.1 4. 8-10.8 - X10*3/uL ?Red Blood Count 4.56 4.20 -5.50 - X10*6/uL ?Hemoglobin 14.4 12.0-16.0 - g/dl ?Hematocrit 42.9 37.0-47.0 - % ?Mean Corpuscular Volume 94.1 80.0-98.0 - fL ?Mean Corpuscular Hemoglobin 31.6 27.0-33.0 - pg ?Mean Corpuscular HGB Conc 33.6 31.0-35.0 - g/dl ?Red Cell Distribution Width 11.7 11.0-16.0 - % ?Platelet Count 192 160-4 00 - X10*3/uL ?Mean Platelet Volume 11.6 9.4-12.3 - fL ?Neutrophils Percent Auto 57.3 45-73 - % ?Imm Gran Pct Auto 0.3 0. 0-0.4 - % ?Lymphocytes Percent Auto 28.9 20-40 - % ?Monocytes Percent Auto 10.0 2-11 - % ?Eosinophils Percent Auto 2.8 0-4 - % ?Basophils Percent Auto 0.7 0-2 - % ?NRBC Pct Auto 0.0 0.0-0. 2 - /100WBC ?Neutrophils Absolute Auto 3.5 2.0-8.3 - x10*3/uL ?Imm Gran Abs Auto 0.02 0. 00-0.03 - X10*3/uL ?Lymphocytes Absolute Auto 1.8 1.2-4.9 - X10*3/uL ?Monocytes Absolute Auto 0.6 0.1-1.2 - X10*3/uL ?Eosinophils Absolute Auto 0.2 0.0-0.4 - X10*3/uL ?Basophils Absolute Auto 0.0 0.0-0.2 - X10*3/uL ?NRBC Abs Auto 0.000 0.0-0. 012 - X10*3/uL ???Lab:Comprehensive [place]. P génesis Fast (Order Date - 11/21/2023) (Collection Date - 11/21/2023) ? Value Reference Range ?Sodium 141 135-145 - mmo l/L ?Bilirubin Total 0.5 0.0- 1.0 - mg/dL ?Aspartate Amino Transferase 13 5-31 - U/L ?Alanine Aminotransferase 14 0-31 - U/L ?Total Protein 6.9 6.5-8. 0 - g/dL ?Albumin Level 4.4 3.5-5. 0 - g/dL ?Alkaline Phosphatase 54 39-117 - U/L ?Potassium 4.0 3.3-5.1 - mmol/L ?Chloride 109 H 96-108 - mm ol/L ?Carbon Dioxide 24 22-29 - mmol/L ?Anion Gap 12 12-20 - ?Blood Urea Nitrogen 13 9-16 - mg/dL ?Creatinine 0.79 0.5-1.4 - mg/dL ?Estimated Glomerular Filt Rate > 60 - ?Glucose Fasting 82 60-9 9 - mg/dL ?Calcium 9.5 8.4-10.2 - m g/dL ???Lab:Lipid Panel (Order Da te - 11/21/2023) (Collection Date - 11/21/2023) ? Value Reference Range ?Triglycerides 73 <150 - mg/dL ?Cholesterol 134 <200 - m g/dL ?LDL Cholesterol Calculated 49 <100 - mg/dL ?HDL Cholesterol 71 >40 - mg/dL * Examination: ???General Examination: ?GENERAL APPEARANCE:?well developed, well nourished, in no acute distress.?HEAD:?normocephalic, atraumatic.?EYES:?pupils equal, round, reactive to light and accommodation, sclera non-icteric.?EARS:?normal.?ORAL CAVITY:?mucosa moist.?THROAT:?clear.?NECK/THYROID:?neck supple, full range of motion, no cervical lymphadenopathy, no bruits.?SKIN:?warm and dry, no suspicious lesions.?HEART:?regular rate and rhythm, S1, S2 normal, no murmurs.?LUNGS:?clear to auscultation bilaterally.?BREASTS:?done by poultryman.?ABDOMEN:?soft, nontender, nondistended, bowel sounds present, normal, no organomegaly , no masses palpable.?RECTAL EXAM:?done by poultryman.?FEMALE GENITOURINARY:?done by poultryman.?EXTREMITIES:?no clubbing, cyanosis, or edema.?NEUROLOGIC:?nonfocal, motor strength normal upper and lower extremities, sensory exam intact.? Assessment: * Assessment: 1.?Annual physical exam - Z0 0.00 (Primary)?2.?Microscopic hematuria - R31.29?3.?Encounter for general adult medical examination with abnormal findings - Z00.01? Plan: * Treatment: 2.?Microscopic hematuria?LAB: Urinalysis and Microscopic Notes: had strained hard to urinate and same as last year. will continue to monitor, lab pending.?? * Procedure Codes:? * Follow Up:?1 Year * * Sign off status: Completed true * Provider:?Joesph Feliz MD Date:?0 11/28/2023 Generated for Virginia carrasco/Ezequiel/Jessicasmitting on:?05/12/2024 03:03 PM EST History and Physical Notes * HPI (History of Present Illness) Category Sub-Category Detail Notes Category Not es Symptom(s) patient is a 32 yo female here for yearly evaluation with review of recent labs and follow up of chronic issues. Depression Screening PHQ-9 Little inte rest or pleasure in doing things: Not at all Feeling down, depressed, or hopeless: No t at all Trouble falling or staying asleep, or sl eeping too much: Not at all Feeling tired or having little energy: N ot at all Poor appetite or overeating: Not at all Feeling bad about yourself o r that you are a failure, or have let yourself or your family down: Not at all Trouble concentrating on thi ngs, such as reading the newspaper or watching television: Not at all Moving or speaking so slowly that other people could have noticed; or the opposite, being so fidgety or restless that you have been moving around a lot more than usual: Not at all Thoughts that you would be b jin off or of hurting yourself in some way: Not at all Total Score: 0 Interpretation and Intervention Depression Judy harden Findings: Negative Follow-Up for Depression: : review of PH Q-9 found negative result, no follow-up needed SDOH Questions SDOH Questions In the past year have you been worried about losing housing?: No In the past year have you or any family members you live with been unable to get any of the following when it was really needed? Check all that apply:: None Communication Needs Communication Needs Does the patient have a hearing impairment: No Does the patient have a vision impairmen t?: Yes ?If yes, what is the vision impairment?: Glasses Does the patient have a cognition impair ment?: No Examination Category Sub-Category Detail Notes Category Not es General Examination GENERAL APPEARANCE: well dev eloped, well nourished, in no acute distress HEAD: normocephalic, atrau matic EYES: pupils equal, round, reactive to light and accommodation, sclera non- icteric EARS: normal THROAT: clear NECK/THYROID: neck supple, full ra nge of motion, no cervical lymphadenopathy, no bruits HEART: regular rate and rhy thm, S1, S2 normal, no murmurs LUNGS: clear to auscultatio n bilaterally ABDOMEN: soft, nontender, non distended, bowel sounds present, normal, no organomegaly , no masses palpable NEUROLOGIC: nonfocal, motor stre ngth normal upper and lower extremities, sensory exam intact SKIN: warm and dry, no yoana picious lesions EXTREMITIES: no clubbing, cyanosi s, or edema BREASTS: done by poultryman RECTAL EXAM: done by poultryman FEMALE GENITOURINARY: done by poultryman ORAL CAVITY: mucosa moist
--- OUTSIDE RECORDS SUMMARY | 2024-05-12 15:04 | XMS_ITS ---
Author Organization Joesph Feliz MD Address [address] [place], [place] [phone] Care Team Providers Care Space Scheduler Name Role Phone Joesph Feliz Primary Care Provider Reason For Referral Reason chronic constipation Diagnosis 1 Chronic constipation (K59.09) Referral Organization Joesph Feliz MD Referring Provider First Name Joesph Referring Provider Last Name Tray Referring Provider Speciality Internal M edicine Referred Provider NICOLE MORRISON Referred Provider Specialty Gastroentero logy General Notes Geraldine Mejia 1 02:32:25 PM >info faxedRoberto Annette 02/06/2024 01:45:53 PM >was told being worked onRoberto Annette 02/10/2024 11:47:34 AM >appt is Roberto Costa Annette 02/13/2024 09:56:44 AM > referral mailed to patient Referral Priority Routine Referral Appointment Date 05/12/2024 REASON FOR VISIT stomach issues-referral to GI Medications Medication SIG (Take, Route, Frequency, Duration) [...] a day for 10 days 11/17/2018 Not-Taking Vital Signs Blood pressure systolic 84 mm Hg 01/23/20 24 Blood pressure diastolic 60 mm Hg 024 Height 64 in 01/23/2024 Encounters Encounter Location Date Provider Diagnosis Joesph Feliz MD [address] [place], [place] [phone] 01/23/2024 Joesph Feliz Chronic constipation K59.09 and Migraine with aura and without status migrainosus, not intractable G43.109 Assessments Encounter Date Diagnosis (ICD Code) Assessment Notes Treatment Notes Treatment Clinical Notes Section Notes 01/23/2024 Chronic constipation (ICD-10 - K59.09) only happens on vacation. 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 never took hyosciamen/ [place] [facility] [place]/23/[place]24 Migraine with aura and without status migrainosus, not intractable (ICD-10 - G43.109) patient verbalized undersing ofd medication and directions for use Plan Of Treatment Medication Medication Name Sig Start Date Stop Date Notes Imitrex 50 MG 1 tablet as needed, may take second dose at least 2 hours after first dose up to 4 tablets per day as needed Orally Once a day for 30 day(s) 01/23/2024 Treatment Notes Assessment Notes Chronic constipation only happens on vac ation. 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 never took hyosciamen/ [place] [facility] [place] Migraine with aura and witho ut status migrainosus, not intractable patient verbalized undersing ofd medication and directions for use Referrals Referral Date Details 01/23/2024 01/23/2024, chronic constipation , NICOLE MORRISON Next Appt Details Provider Name:Joesph baumann, 11/23/2024 07:30:00 AM, [address], [address], [place], [place], [phone], Provider Name:Joesph baumann, 11/30/2024 01:00:00 PM, [address] [facility], [address], [place], [place], [phone], Progress Notes * ADELTIA DUMAS:[birth year] (33 yo F)Acc No.[id number]:01/23/2024 Progress Notes Patient:?MARILY DUMAS Provider:?Joesph Feliz MD :1990???Age:33 Y???Sex:Female D ate:01/23/2024 Address:[address] [place], [place] [phone] Subjective: * Chief Complaints: * ???stomach issues-referral t o GI * HPI: ???Symptom(s):? patient is a 33 yo female here with complaint of stomach issues, requesting to see GI, was in [place] and no bm for 7 days. didn't feel like she needed. didn't take anything. usually takes miralax before vacation same as always. using colostrum from cows. * ROS:?General/Constitutional:?Denies?Chills.?Denies?Fatigue.?Denies?Fever.?Denies?Headache.?ENT:?Patient denies?decreased sense of smell , any loss of taste , sore throat.?Denies?Sore throat.?Respiratory:?Denies?Shortness of breath at rest.?Denies?Shortness of breath with exertion.?Musculoskeletal:?Patient denies?muscle aches.?Peripheral Vascular:?Patient denies?red and blue toes.?Neurologic:?Patient complaining of?getting frequent migraines when she gets her braces adjusted.? * Medical History:? * Surgical History:? * Hospitalization/Major Diagno stic Procedure:? * Medications:?Not-Taking/[facility] yoscyamine Sulfate ER 0.375 MG Tablet Extended Release 12 Hour 1 tablet Orally every 12 hrsNaratriptan HCl 2.5 MG Tablet 1 tablet as needed one time Orally Once a dayNot-Taking/PRN Hyoscyamine Sulfate ER 0.375 MG Tablet Extended Release 12 Hour 1 tablet Orally every 12 hrsNot-Taking/PRN Naratriptan HCl 2.5 MG Tablet 1 tablet as needed one time Orally Once a day * Allergies:?yes[Allergies Sammie ified] Objective: * Vitals:?Ht: 64, BP:84/60. * Examination: ???General Examination: ?GENERAL APPEARANCE:? alert, well hydrated, in no distress .?HEAD:? normocephalic.?SKIN:? good turgor.?HEART:? regular rate and rhythm, no murmurs, rubs, gallops.?LUNGS:? no wheezes, rales, rhonchi, good air movement, clear to auscultation bilaterally.?ABDOMEN:? soft, nontender, nondistended.? Assessment: * Assessment: 1.?Chronic constipation - K5 9.09 (Primary)?2.?Migraine with aura and without status migrainosus, not intractable - G43.109? Plan: * Treatment: 2.?Migraine with aura and wi thout status migrainosus, not intractable? Start Imitrex Tablet, 50 MG, 1 tablet as needed, may take second dose at least 2 hours after first dose up to 4 tablets per day as needed, Orally, Once a day, 30 day(s), 6, Refills 3.?? Notes: patient verbalized undersing ofd medication and directions for use?? * Procedure Codes:? * * Sign off status: Completed true * Provider:?Joesph Feliz MD Date:?1 Generated for Virginia carrasco/Ezequiel/Jessicasmitting on:?05/12/2024 03:03 PM EST History and Physical Notes * HPI (History of Present Illness) Category Sub-Category Detail Notes Category Not es Symptom(s) patient is a 33 yo female here with complaint of stomach issues, requesting to see GI, [facility] [place] [place] [facility] [facility]. didn't feel like she needed. didn't take anything. usually takes miralax before vacation same as always. using colostrum from cows. Examination Category Sub-Category Detail Notes Category Not es General Examination GENERAL APPEARANCE: alert, w ell hydrated, in no distress HEAD: normocephalic HEART: regular rate and rhy thm, no murmurs, rubs, gallops LUNGS: no wheezes, rales, r honchi, good air movement, clear to auscultation bilaterally ABDOMEN: soft, nontender, non distended SKIN: good turgor Consultation Request Notes Referral Date Referring Provider Referred Provider Not es 01/23/2024 Joesph Feliz RUBEELA chronic c onstipation
--- OUTSIDE RECORDS SUMMARY | 2024-05-12 15:04 | XMS_ITS | Patient Health Record ---
Author Organization [facility] Address [address] [place] [address] Care Team Providers Care Change Management Administrator Name Role Phone Joesph Feliz MD Primary Care Provider Jessica Tatum Unavailable [phone] Allergies No Known Allergies Reason For Referral No Information Social History Tobacco Use: Social History Observation Description Date Details (start date - stop date) Never Smoker NA - NA Tobacco Use/Smoking Question Answer Notes Are you a: nonsmoker Additional Findings: Tobacco Non-User Current no n-smoker Alcohol Screen Question Answer Notes Did you have a drink contain ing alcohol in the past year? Yes How often did you have a dri nk containing alcohol in the past year? 2 to 3 times a week (3 points) Points 3 Interpretation Positive Tobacco use other than smoking: Question Answer Notes Are you an other tobacco user? No Plan Of Treatment No Information Insurance Providers Payer Name Payer Address Payer Phone Subscriber Number Group Number Insured Name Patient Relationship to Insured Coverage Start Date Coverage End Date [facility] [id number] [place] [address] [id number] Kae Rose Self - patient is the insured Medical (General) History Medical History History ICD Code Back,Hip,and Knee pain covid-19 Headaches/Migraines Psoriasis/eczema Sciatica Chicken pox Shingles Surgical History Surgery Date(Month/Year)
== END 2024-05-12 13:48 | disposition home or self-care (01) ==
PROVIDERS: PCP Nurse Practitioner Family; Visit Provider Nurse Practitioner Family
DX: R14.0 Abdominal distension (gaseous) (principal); R10.12 Left upper quadrant pain; K52.9 Noninfective gastroenteritis and colitis, unspecified; K59.04 Chronic idiopathic constipation; K21.9 Gastro-esophageal reflux disease without esophagitis
CPT/HCPCS: 99204

== ENCOUNTER 2024-08-16 08:02 | Outpatient (AMB) | payer BC, SELFPAY ==
[2024-08-16 08:05] VITALS: BP 106/60; PULSE 76; O2SAT 96; BMI 24.8
--- NOTE | 2024-08-16 08:05 | A.OFFVIS_ITS ---
Vital Signs 08/16/24 08:05 Height 5 ft 3 in Weight 140 lb BMI 24.8 BP 106/60 Blood Pressure Location Rt brachial Position Sitting Pulse 76 Pulse Source Pulse Oximeter Pulse Oximetry (%) 96 Oxygen Delivery Method Room Air Intake Visit Reasons: 3 Mo constipation Intake Note: ESTABLISHED PATIENT for mgmt of constipation. Labs done. Chief Complaint; C/O new development of GERD sx over the last few weeks. Pt also reports having dysphagia (pills). No additional sx or concerns at this time. Pt comments that her GI upset, fecal abn, and bloating resolved when she changed multivitamin types. Electro Mechanical Technician Required: No Accompanied by: Self / Same As Patient Allergies No Known Allergies Allergy (Verified 08/16/24 08:05) HPI HPI 3 Mo constipation: Details: LAST VISIT: Postprandial abdominal bloating Abdominal pain, LUQ (left upper quadrant) Postprandial diarrhea Constipation GERD (gastroesophageal reflux disease) Plan Occasional epigastric pain depending on what she eats and all mom bloating. Postprandial diarrhea. Patient will get her blood work done, transglutaminase, thyroid study, CRP, B12 and folate, CRP, vitamin-D level. Differentials include celiac, IBD, IBS with both C/D diverticulosis, malabsorption. Education provided to patient regards to low FODMAP diet. List of food recommended as well as list of food to avoid given to patient. We discussed trial of fiber with pre and probiotics. Patient was encouraged to drink plenty fluids. Increase activity to promote better bowel motility. Patient is having more sedentary lifestyle due to her job requirements. Most of the time she is sitting. Patient was encouraged to get up throughout the day and try to do some exercises, yoga. If she continues to have symptoms patient will be sent for colonoscopy and possible upper endoscopy. Is CRP positive will get fecal calprotectin. Patient will follow-up in 3 months. She will call our office if she will have ongoing or worsening GI symptoms. She is agreeable to this plan and verbalizes understanding of instructions. She was given the opportunity to ask questions and all questions answered. ? Thank you for allowing me to participate in her care Orders Orders Transglutaminase IgA Today R10.9 TSH reflex Free T4 Today K59.00 C Reactive Protein Today K58.9 Vitamin B12 and Folate Today R19.7 Vitamin D 25-OH (D2 and D3) Today E55.9 TODAY'S VISIT: Patient is here today for follow-up. Lab results discussed with patient. Patient reports that she has been feeling well since last visit. Patient had normal labs. Reports to be feeling well since visit. Patient completely changed her diet and is aware of food that causing triggers for her. Patient is avoiding them as much as she can. Patient does her own meal prep send does not eat out much. Patient reports that she has her own garden and has her own vegetables that sometimes she can not. She however is having trouble swallowing medications. She feels like things are getting stuck in the lower part of her esophagus. When that happens she has to eat something in order for it to go down. It does not really happen with solid food just happen with medications. Patient is taking multivitamin gummies. She has to take them at nighttime as it causes abdominal bloating if she takes it in the morning. [facility] Medical History Chronic idiopathic constipation Irritable bowel syndrome with diarrhea Migraine Surgical History H/O wisdom tooth extraction Family History Maternal Grandmother Lung cancer Maternal Aunt Leukemia Social History Alcohol intake: current Alcohol intake frequency: a few times a week Patient Tobacco Use Status: Never used Tobacco Review of Systems Const Denies weight gain and Denies weight loss ENT Reports no additional complaints, Reports dysphagia and Denies odynophagia Card Reports no additional complaints Resp Reports no additional complaints GI Reports abdominal pain (Epigastric), Denies belching, Denies melena, Reports bloating, Denies change in bowel habits, Reports constipation, Reports GI cramp ing, Reports dysphagia, Denies excessive flatus, Denies dyspepsia, Reports heartburn (Occasional), Denies diarrhea, Reports loose stools, Denies nausea, Denies odynophagia and Denies vomiting Reports no additional complaints Musc Reports no additional complaints Neuro Reports no additional complaints Psych Reports no additional complaints Endo Reports no additional complaints Physical Exam Vital Signs: Last Vital Signs Pulse 76 08/16/24 08:05 BP 106/60 08/16/24 08:05 Pulse Ox 96 08/16/24 08:05 Oxygen Delivery Method Room Air 08/16/24 08:05 BMI result Body Mass Index 24.8 Const General: healthy appearing, no acute distress and well developed Nutritional Appearance: well nourished Orientation/consciousness: patient oriented x3 Resp Effort & Inspection: normal respiratory effort, able to speak in complete sentences, no tracheal deviation and symmetric chest movement Auscultation: clear to auscultation bilaterally Cardio Rate: regular rate GI Inspection: Yes normal to inspection and No distended Palpation (GI): Soft to palpation, not firm, nontender and No hepatosplenomegaly present Auscultation: normal bowel sounds General: Yes no CVA tenderness Back/Spine/Pelvis Back: no CVA tenderness Skin General skin exam: elasticity normal, turgor normal and dry skin Neuro General: patient oriented x3 Psych Appearance: grossly normal Mental Status: mental status grossly normal Results Reviewed Results Reviewed: Laboratory Tests 05/12/24 14:04 C-Reactive Protein < 0.04 Vitamin B12 359 25-OH Vitamin D Total 46 Folate 12.6 TSH 0.91 Tiss Transglutamin IgA <1.0 Assessment & Plan Assessment & Plan (1) Postprandial abdominal bloating: Code(s): R14.0 - Abdominal distension (gaseous) (2) Abdominal pain, LUQ (left upper quadrant): Code(s): R10.12 - Left upper quadrant pain (3) Postprandial diarrhea: Code(s): K52.9 - Noninfective gastroenteritis and colitis, unspecified (4) Constipation: Code(s): K59.00 - Constipation, unspecified Qualifiers: Constipation type: slow transit constipation Qualified Code(s): K59.01 - Slow transit constipation (5) GERD (gastroesophageal reflux disease): Code(s): K21.9 - Gastro-esophageal reflux disease without esophagitis Qualifiers: Esophagitis presence: esophagitis presence not specified Qualified Code(s): K21.9 - Gastro-esophageal reflux disease without esophagitis Plan Patient continues to have dysphagia specially with medications not so much with solid food or any liquids. I will send her for upper GI with barium swallow. To evaluate if her symptoms are caused by acid reflux, esophageal narrowing, achalasia, Schatzki ring. Occasional reflux, however it is controlled mainly with food. Continue low FODMAP diet, continue avoiding dietary triggers. Patient will return to the office in 4 months, sooner on as needed basis. She is agreeable to this plan and verbalizes understanding of instructions. She was given the opportunity to ask questions and all questions answered Thank you for allowing me to participate in her care Orders: Orders FL upper GI w Ba Swallow Today K21.9 - Gastro-esophageal reflux disease without esophagitis Coding Level of Care Code Est Pt Level 3 (69713) Diagnoses Postprandial abdominal bloating R14.0 Abdominal pain, LUQ (left upper quadrant) R10.12 Postprandial diarrhea K52.9 Slow transit constipation K59.01 Constipation type: slow transit constipation Gastroesophageal reflux disease, unspecified whether esophagitis present K21.9 Esophagitis presence: esophagitis presence not specified Time Spent (min) 25 Comment 15 minutes spent with patient and additional 10 minutes spent reviewing her records
--- OUTSIDE RECORDS SUMMARY | 2024-08-16 08:08 | XMS_ITS ---
Author Organization Joesph Feliz MD Address [address] [place], [place] [id number] Care Team Providers Care Computer Programmer Chief Name Role Phone Joesph Feliz Primary Care Provider Allergies No Known Allergies Reason For Referral Reason migraine please ev al and treat Diagnosis 1 Migraine with aura a nd without status migrainosus, not intractable (G43.109) Referral Organization Joesph Feliz MD Referring Provider First Name Joesph Referring Provider Last Name Tray Referring Provider Speciality Internal M edicine Referred Provider Bala Newman Referred Provider Specialty Neurology General Notes Geraldine Mejia 0 06/14/2024 01:16:45 PM >info faxed, Geraldine Mejia 06/18/2024 02:23:21 PM >appt is 07-22-2024 3:10 pmRoberto Annette 06/18/2024 02:24:29 PM >mailed referral info to patient, Lore Galloway 07/23/2024 01:14:30 PM >OFFICE NOTE RECD Referral Priority Routine Referral Appointment Date 07/22/2024 REASON FOR VISIT head aches Medications Medication SIG (Take, Route, Frequency, Duration) Notes Start Date End Date Status Imitrex 50 MG 1 tablet as needed, may take second dose at least 2 hours after first dose up to 4 tablets per day as needed Orally Once a day for 30 day(s) 01/23/2024 Active Naratriptan HCl 2.5 MG 1 tablet as neede d one time Orally Once a day for 10 days 11/17/2018 Not-Taking Hyoscyamine Sulfate ER 0.375 MG 1 tablet Orally every 12 hrs for 7 days 06/17/2023 Not-Taking Propranolol HCl ER 60 MG 1 capsule Orall y Once a day for 30 days 06/04/2024 Active Relpax 20 MG 1 tablet Orally Once a day as needed for 30 days 06/04/2024 Active Vital Signs Blood pressure systolic 82 mm Hg 06/04/19 25 Blood pressure diastolic 54 mm Hg 025 Height 64 in 06/04/2024 Weight 139 lbs 06/04/2024 BMI 23.86 kg/m2 06/04/2024 weight is down 2 pounds [facility] 11-28-23 Encounters Encounter Location Date Provider Diagnosis Joesph Feliz MD [address] [place] [address] [place] [phone] 06/04/2024 Joesph Feliz Migraine with aura and without status migrainosus, not intractable G43.109 Assessments Encounter Date Diagnosis (ICD Code) Assessment Notes Treatment Notes Treatment Clinical Notes Section Notes 06/04/2024 Migraine with aura and without status migrainosus, not intractable (ICD-10 - G43.109) referral to dr [facility] neurology, patient verbalized understanding of medication and directions for use Plan Of Treatment Medication Medication Name Sig Start Date Stop Date Notes Propranolol HCl ER 60 MG 1 capsule Orall y Once a day for 30 days 06/04/2024 Relpax 20 MG 1 tablet Orally Once a day as needed for 30 days 06/04/2024 Treatment Notes Assessment Notes Migraine with aura and witho ut status migrainosus, not intractable referral to dr [facility] neurology, patiradha t verbalized understanding of medication and directions for use Referrals Referral Date Details 06/04/2024 06/04/2024, migraine please eval and treat, Bala Newman Next Appt Details Provider Name:Joesph baumann, 11/23/2024 07:30:00 AM, [address] [place] [address], [address], [place], [place], [phone], Provider Name:Joesph baumann, 11/30/2024 01:00:00 PM, [address] [place] [address], [address], [place], [place], [phone], Progress Notes * MARILY DUMASDOB:[birth year] (33 yo F)Acc No.[id number]:06/04/2024 Progress Notes Patient:?MARILY DUMAS Provider:?Joesph Feliz MD :1990???Age:33 Y???Sex:Female D ate:06/04/2024 Address:[address] [place], [place] [id number] Subjective: * Chief Complaints: * ???Head aches * HPI: ???Symptom(s):?patient is a 33 yo female here with complaint of headaches,??had migraines since 14. since braces got migraines per month. gets aura for an hour then pounding? headache. tried sumitriptan and made her feel worse. only took sumitryptan once. * ROS:?General/Constitutional:?Denies?Chills.?Denies?Fatigue.?Denies?Fever.?Admits?Headache.?ENT:?Patient denies?decreased hearing, any loss of taste, sore throat.?Denies?Sore throat.?Respiratory:?Denies?Cough.?Denies?Shortness of breath at rest.?Denies?Shortness of breath with exertion.?Gastrointestinal:?Denies?Diarrhea.?Denies?Nausea.?Musculoskeletal:?Patient denies?muscle aches.?Peripheral Vascular:?Patient denies?red and blue toes.?Neurologic:?Denies?Dizziness.?Denies?Fainting.?Admits?Headache.? * Medical History:? * Surgical History:? * Hospitalization/Major Diagno stic Procedure:? * Medications:?TakingImitrex 5 0 MG Tablet 1 tablet as needed, may take second dose at least 2 hours after first dose up to 4 tablets per day as needed Orally Once a day Taking Imitrex 50 MG Tablet 1 tablet as needed, may take second dose at least 2 hours after first dose up to 4 tablets per day as needed Orally Once a day Not-Taking/PRNHyoscyamine Sulfate ER 0.375 MG Tablet Extended Release 12 Hour 1 tablet Orally every 12 hrs Naratriptan HCl 2.5 MG Tablet 1 tablet as needed one time Orally Once a day Medication List reviewed and reconciled with the patientNot-Taking/PRN Hyoscyamine Sulfate ER 0.375 MG Tablet Extended Release 12 Hour 1 tablet Orally every 12 hrs Not-Taking/PRN Naratriptan HCl 2.5 MG Tablet 1 tablet as needed one time Orally Once a day Medication List reviewed and reconciled with the patient * Allergies:?N.K.D.A.yes[Aller gies Verified] Objective: * Vitals:?Ht: 64, Wt: 139, BMI :23.86, BP:82/54, Wt-k.05. weight is down 2 pounds since 11-28-23. * Examination: ???General Examination: ?GENERAL APPEARANCE:?well developed, well nourished.?SKIN:?good turgor.?HEART:?no murmurs, rubs, gallops, regular rate and rhythm.?LUNGS:?clear to auscultation bilaterally, good air movement, no wheezes, rales, rhonchi.? Assessment: * Assessment: 1.?Migraine with aura and wi thout status migrainosus, not intractable - G43.109 (Primary)??? Plan: * Treatment: * Procedure Codes:? * * Sign off status: Completed true * Provider:?Joesph Feliz MD Date:?0 06/04/2024 Generated for Virginia carrasco/Ezequiel/Maria R on:?08/16/2024 08:08 AM EDT History and Physical Notes * HPI (History of Present Illness) Category Sub-Category Detail Notes Category Not es Symptom(s) patient is a 33 yo female here with complaint of headaches, had migraines since 14. since braces got migraines per month. gets aura for an hour then pounding headache. tried sumitriptan and made her feel worse. only took sumitryptan once Examination Category Sub-Category Detail Notes Category Not es General Examination GENERAL APPEARANCE: well developed , well nourished HEART: no murmurs, rubs, ga llops, regular rate and rhythm LUNGS: clear to auscultatio n bilaterally, good air movement, no wheezes, rales, rhonchi SKIN: good turgor Consultation Request Notes Referral Date Referring Provider Referred Provider Not es 06/04/2024 Joesph Feliz, Bala migrain e please eval and treat
--- OUTSIDE RECORDS SUMMARY | 2024-08-16 08:08 | XMS_ITS | Patient Health Record ---
Author Organization Joesph Feliz MD Address [address] [place], [place] [id number] Care Team Providers Care Logger All Round Name Role Phone Joesph Feliz Primary Care Provider Allergies No Known Allergies Results Component Value Reference Range Notes Complete Blood Count Auto Di ff Reviewed date:11/21/2023 03:38:38 PM Interpretation: Performing Lab:[facility], [address] [place] [id number] Notes/Report: White Blood Count 6.1 4.8-10.8 X10*3/uL [...] NRBC Abs Auto 0.000 0.0-0.012 X10*3/uL Comprehensive Rachel. Panel Fa st Reviewed date:11/21/2023 03:38:21 PM Interpretation: Performing Lab:[address] [id number] Notes/Report: Sodium 141 135-145 mmol/L Potassium 4.0 3.3-5.1 mmol/L Chloride 109 96-108 mmol/L Carbon Dioxide 24 22-29 mmol/L Anion Gap 12 12-20 Blood Urea Nitrogen 13 9-16 mg/dL Creatinine 0.79 0.5-1.4 mg/dL Estimated Glomerular Filt Rate > 60 NOTE: For -Mosotho individuals, multiply the result by 1.210. Chronic [...] Panel Reviewed date:11/21/2023 03:31:55 PM Interpretation: Performing Lab:[address] [id number] Notes/Report: Triglycerides 73 <150 mg/dL Desirable Triglyceride: [...] date:11/28/2023 01:31:29 PM Interpretation:see back 11-28-2023 Performing Lab:[facility], [address] [place] [phone] Notes/Report: Urine, Clean Catch Color Urine Yellow Appearance Urine Clear PH 6.0 5.0-9.0 Glucose Urine UA Negative Negative mg/dL Urine Blood Trace Negative Specific [place] - Urine 1.025 1.005-1.025 Urine Protein Negative [...] Referral Priority Routine Referral Appointment Date 05/12/2024 Reason migraine please ev al and treat [...] 06/18/2024 02:23:21 PM >appt is 07-22-2024 3:10 pm, Geraldine Mejia 06/18/2024 02:24:29 PM >mailed referral info to patient, Lore Galloway 07/23/2024 01:14:30 PM >OFFICE NOTE RECD Referral Priority Routine Referral Appointment Date 07/22/2024 Medications Medication SIG (Take, Route, Frequency, Duration) [...] 12 hrs for 7 days 06/17/2023 Not-Taking Immunizations Vaccine Route Administration Date Status [...] Problem Status W/U Status Risk Notes Problem 539044014 Irritable bowel syndrome with diarrhea (K58.0) Active confirmed Problem [id number] Migraine with aura and without status migrainosus, not intractable (G43.109) Active confirmed Problem 70997390 Chronic idiopathic constipation (K59.04) Active confirmed Vital Signs Blood pressure diastolic 54 mm Hg 06/04/2024 mayank ght is down 2 pounds since 11-28-23 Height 64 in 06/04/2024 weight is down 2 pounds since 11-28-23 Blood pressure systolic 82 mm Hg 06/04/2024 weig ht is down 2 pounds since 11-28-23 Weight 139 lbs 06/04/2024 weight is down 2 pounds since 11-28-23 BMI 23.86 kg/m2 06/04/2024 weight is down 2 pounds since 11-28-23 Encounters Encounter Location Date Provider Diagnosis Joesph Feliz MD [address] [place] [phone] 11/28/2023 Joesph Feliz Microscopic hematuri a R31.29 ; Annual physical exam Z00.00 and Encounter for general adult medical examination with abnormal findings Z00.01 Joesph Feliz MD [address] [place] [phone] 11/21/2023 Joesph Feliz Blood tests for routine general physical examination Z00.00 Joesph Feliz MD [address] [place] [phone] 01/23/2024 Joesph Feliz Chronic constipation K59.09 and Migraine with aura and without status migrainosus, not intractable G43.109 Joesph Feliz MD [address] [place] [phone] 06/04/2024 Joesph Feliz Migraine with aura and [...] routine general physical examination (ICD-10 - Z00.00) 01/23/2024 Chronic constipation (ICD-10 - K59.09) only happens on vacation. 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 never took hyosciamen/ [place] [facility]/04/[place]24 Migraine with aura and without status migrainosus, not intractable (ICD-10 - G43.109) referral to dr [facility] neurology, patient verbalized understanding of medication and directions for use 11/28/2023 Encounter for general adult medical examination with abnormal findings (ICD-10 - Z00.01) 01/23/2024 Migraine with aura and without status migrainosus, not intractable (ICD-10 - G43.109) patient verbalized undersing ofd medication and directions for use Plan Of Treatment Next Appt Details Provider Name:Joesph Lim ier, 11/23/2024 07:30:00 AM, [address] [place] [address], [address], [phone], Provider Name:Joesph Lim ier, 11/30/2024 01:00:00 PM, [address] [place] [address], [address] [place] [address], [phone], Insurance Providers Payer Name Payer Address Payer Phone Subscriber Number Group Number Insured Name Patient Relationship to Insured Coverage Start Date Coverage End Date [employer] [address] [place], [place] [id number] [phone] [id number] MARILY CELIS Self - patient is the insured
--- OUTSIDE RECORDS SUMMARY | 2024-08-16 08:08 | XMS_ITS ---
Author Organization Joesph Feliz MD Address [address] [place], [place] [phone] Care Team Providers Care Rehabilitation Manager Name Role Phone Joesph Feliz Primary Care [...] Date Provider Diagnosis Joesph Feliz MD [address] [place], [place] [phone] 07/02/2024 Joesph Feliz Plan Of Treatment Next Appt Details Provider Name:Joesph baumann, 11/23/2024 07:30:00 AM, [address] [place] [address], [address], [place], [place], [phone], Provider Name:Joesph baumann, 11/30/2024 01:00:00 PM, [address] [place] [address], [address], [place], [place], [phone], Progress Notes * MARILY DUMASDOB:[birth year] (33 yo F)Acc No.[id number]:07/02/2024 Progress Notes Patient:?MARILY DUMAS Provider:?Joesph Feliz MD :1990???Age:33 Y???Sex:Female D ate:07/02/2024 Address:[address] [place], [place] [id number] Subjective: * Chief Complaints: * ???1. 1 month. * HPI: ???Symptom(s):? patient is a 33 yo female here fr one month follow up visit. * ROS:?General/Constitutional:?Denies?Chills.?Denies?Fatigue.?Denies?Fever.?Denies?Headache.?ENT:?Denies?Sore throat.?Respiratory:?Denies?Shortness of breath at rest.?Denies?Shortness of breath with exertion.?Gastrointestinal:?Denies?Diarrhea.?Denies?Nausea.? * Medical History:?Medical His tory Verified. * Medications:?Taking Imitrex 50 MG Tablet 1 tablet as [...] one time Orally Once a day * Allergies:?N.K.D.A. Objective: * Vitals:? Assessment: Plan: * Treatment: * * The named appointment provid er may or may not be the originator of this progress note, and it is not deemed complete until electronically signed by the appointment provider. Sign off status: Pending * Provider:?Joesph Feliz MD Date:?0 07/02/2024 Generated for Virginia carrasco/Ezequiel/Maria R on:?08/16/2024 08:07 AM EDT History and Physical Notes * HPI (History of Present Illness) Category Sub-Category Detail Notes Category Not es Symptom(s) patient is a 33 yo female here fr one month follow up visit
--- OUTSIDE RECORDS SUMMARY | 2024-08-16 08:08 | XMS_ITS | Encounter Summary ---
[facility] Address [address] [place] [address] Care Team Providers Care Business Development Consultant Name Role Phone Leander Thomas MD Primary Care Provider Sowmya Rivera MD Primary Care Provider Kvng tien Encounter Details Date Type Department Care Team Description 05/10/2015 Manager Technical Services Report Medical Records [address] [place] [id number] Chauncey Christy MD Social History Tobacco Use Types Packs/Day Years Used Date Smoking Tobacco: Never Smokeless Tobacco: Never Alcohol Use Standard Drinks/Week Comments Yes 2.5 (1 standard drink = 0.6 oz p ure alcohol) Sex Assigned at Date Recorded Not on file documented as of this encounter Plan of Treatment Not on file documented as of this encounter Visit Diagnoses Not on filedocumented in this encounter Care Teams Business Development Consultant Relationship Specialty Start Date End Date Leander Thomas MD [address] [place] [id number] PCP - General Internal Medicine 03/22/15 10/12/15 Sowmya Rivera MD [address] [place] [address] PCP - General Internal Medicine 10/13/15 documented as of this encounter
--- OUTSIDE RECORDS SUMMARY | 2024-08-16 08:08 | XMS_ITS ---
Author Organization Joesph Feliz MD Address [address] [place], [place] [address] Care Team Providers Care Fish Straightener Name Role Phone Joesph Feliz Primary Care Provider [phone] Reason For Referral Reason chronic constipation Diagnosis [...] Feliz MD [address] [place], [place] [phone] 01/23/2024 Joesph Feliz Chronic constipation K59.09 and [...] never took hyosciamen/ [place] [facility]24 Migraine with aura and without status [...] never took hyosciamen/ [place] [facility] Migraine with aura and witho ut status migrainosus, not intractable patient verbalized undersing ofd medication and directions for use Referrals Referral Date Details 01/23/2024 01/23/2024, chronic constipation , NICOLE MORRISON Next Appt Details Provider Name:Joesph baumann, 11/23/2024 07:30:00 AM, [address], [address], [place], [place], [phone], Provider Name:Joesph baumann, 11/30/2024 01:00:00 PM, [address] [facility], [address], [place], [place], [phone], Progress Notes * ADELITA DUMAS:[birth year] (33 yo F)Acc No.[id number]:01/23/2024 Progress Notes Patient:?MARILY DUMAS Provider:?Joesph Feliz MD :1990???Age:33 Y???Sex:Female D ate:01/23/2024 Address:[address] [place], [place] [phone] Subjective: * Chief Complaints: * ???stomach issues-referral [...] Feliz MD Date:?1 Generated for Virginia carrasco/Ezequiel/Jessicasmitting on:?08/16/2024 08:08 AM EDT History and Physical Notes * HPI (History of Present Illness) Category Sub-Category Detail Notes Category Not es Symptom(s) patient is a 33 yo female here with complaint of stomach issues, requesting to see GI, [facility]. didn't [...]
--- OUTSIDE RECORDS SUMMARY | 2024-08-16 08:09 | XMS_ITS | Encounter Summary ---
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
--- OUTSIDE RECORDS SUMMARY | 2024-08-16 08:09 | XMS_ITS | Patient Health Record ---
Author Organization [facility] Address [address] [place] [address] Care Team Providers Care Research Chemist Name Role Phone Joesph Feliz MD Primary Care Provider Jessica Tatum Unavailable [phone] Allergies No Known Allergies Reason For Referral [...] Insured Coverage Start Date Coverage End Date [facility] [address] [place] [address] [id number] Kae Rose Self - patient is the insured Medical (General) History Medical History History ICD Code Back,Hip,and Knee pain covid-19 Headaches/Migraines Psoriasis/eczema Sciatica Chicken pox Shingles Surgical History Surgery Date(Month/Year)
--- OUTSIDE RECORDS SUMMARY | 2024-08-16 08:09 | XMS_ITS | Encounter Summary ---
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
--- OUTSIDE RECORDS SUMMARY | 2024-08-16 08:09 | XMS_ITS | Data Portability ---
Author Organization [facility] [address] Address [address] [place] [address] Care Team Providers Care Banking Paralegal Name Role Phone AAMIR CHONG Primary Care [...] Blood in Urine. Thank you for using [employer], please feel free to contact us if you have any questions or concerns. darvin Not available 03/22/2024 20:13:31 Plan of Treatment Reminders Order Date Submit Date Provider Last Modified By Organization Details Last Modified Time Details Appointments None recorded. Lab urinalysis, dipstick 2023 024 EMELI mendoza [address], [address] [place], [address], 20:16:39 test, urine 2023 EMELI mendoza [address], [address] [place], [address], 20:16:59 Referral None recorded. Procedures None recorded. Surgeries None recorded. Imaging None recorded. Medication Orders Imodium A-D 2 mg tablet 2023 [id number], [address], [place], [id number], 4 20:13:40 ondansetron 4 mg disintegrat ing tablet 2023 [id number], [address], [place], [id number], 4 20:13:42 omeprazole 40 mg capsule,del ayed release 2023 [id number], [address], [place], [id number], 4 20:13:42 Patient TargetsNo targets recorded. Patient Instructions Encounter Date Encounter Id Patient Instructions Last Modified By Organization Details Last Modified Time 03/22/2024 [id number] nausea and vomiting: care instructions ronchaga Not [...] urine Unknown Analyte negati ve Not Available [address], [address], 03/22/2024 19:45:17 03/22/20 24 03/22/2024 pregn ronaldo test, urine Unknown Analyte N Not Available [address], [address], 03/22/2024 19:45:17 03/22/20 24 03/22/2024 pregn ronaldo test, urine Unknown Analyte YES Not Available [address], [address], 03/22/2024 19:45:17 03/22/20 24 03/22/2024 urina lysis , dipst ick Unknown Analyte Normal = light yellow Not Available [address], [address], 03/22/2024 19:44:45 03/22/20 24 03/22/2024 urina lysis , dipst ick Unknown Analyte Normal = clear Not Available [address], [address], 03/22/2024 19:44:45 03/22/20 24 03/22/2024 urina lysis , dipst ick Unknown Analyte Normal = negati ve Not Available [facility] [address] [place] [address], [address], 03/22/2024 19:44:45 03/22/2003/22/2024 urina lysis , dipst ick Unknown Analyte Negati ve Not Available [facility] [address] [address] [place] [address], [address], 03/22/2024 19:44:45 03/22/2003/22/2024 urina lysis , dipst ick Unknown Analyte Normal = Negati ve Not Available [facility] ie [address] [address] [place] [address], [address], 03/22/2024 19:44:45 03/22/2003/22/2024 urina lysis , dipst ick Unknown Analyte Negati ve Not Available [facility] ie [address] [address] [place] [address], [address], 03/22/2024 19:44:45 03/22/20 24 03/22/2024 urina lysis , dipst ick Unknown Analyte Normal = Negati ve Not Available [facility] [address] [address] [place] [address], [address], 03/22/2024 19:44:45 03/22/20 24 03/22/2024 urina lysis , dipst ick Unknown Analyte Normal = 1.010, 1.015, 1.[address] [facility] [address] [place] [address], [address], 03/22/2024 19:44:45 03/22/2003/22/2024 urina lysis , dipst ick Unknown Analyte Normal = Negati ve Not Available [facility] ie [address] [address] [place] [address], [address], 03/22/2024 19:44:45 1203/22/2024 urina lysis , dipst ick Unknown Analyte Small Not Available [facility] [address] [place] [address], [address], 03/22/2024 19:44:45 03/22/20 24 03/22/2024 urina lysis , dipst ick Unknown Analyte Normal = 6.5, 7.0, 7.5, 8.[address] [facility] [address] [place] [address], [address], 03/22/2024 19:44:45 03/22/2003/22/2024 urina lysis , dipst ick Unknown Analyte Normal = Negati ve Not Available [facility] [address] [place] [address], [address], 03/22/2024 19:44:45 03/22/20 24 03/22/2024 urina lysis , dipst ick Unknown Analyte Normal = 0.2, 1.[address] [facility] [address] [place] [address], [address], 03/22/2024 19:44:45 03/22/20 24 03/22/2024 urina lysis , dipst ick Unknown Analyte Normal = Negati ve Not Available [facility] [address] [place] [address], [address], 03/22/2024 19:44:45 03/22/20 24 03/22/2024 urina lysis , dipst ick Unknown Analyte Negati ve Not Available [facility] [address] [place] [address], [address], 03/22/2024 19:44:45 03/22/20 24 03/22/2024 urina lysis , dipst ick Unknown Analyte Normal = Negati ve Not Available [facility] [address] [place] [address], [address], 03/22/2024 19:44:45 03/22/20 24 03/22/2024 urina lysis , dipst ick Unknown Analyte Negati ve Not Available [facility] ie [address] [address] [place] [address], [address], 03/22/2024 19:44:45 03/22/20 24 03/22/2024 urina lysis , dipst ick Unknown Analyte Yellow Not Available [facility], [address], 03/22/2024 19:44:45 03/22/20 24 03/22/2024 urina lysis , dipst ick Unknown Analyte Clear Not Available [address], [address], 03/22/2024 19:44:45 03/22/20 24 03/22/2024 urina lysis , dipst ick Unknown Analyte Negati ve Not Available [facility] [address] [place] [address], [address], 03/22/2024 19:44:45 03/22/20 24 03/22/2024 urina lysis , dipst ick Unknown Analyte 1.015 Not Available [address], [address], 03/22/2024 19:44:45 03/22/20 24 03/22/2024 urina lysis , dipst ick Unknown Analyte 5.5 Not Available [address], [address], 03/22/2024 19:44:45 03/22/20 24 03/22/2024 urina lysis , dipst ick Unknown Analyte Negati ve Not Available [facility] [address] [place] [address], [address], 03/22/2024 19:44:45 03/22/2003/22/2024 urina lysis , dipst ick Unknown Analyte 0.2 E.U./d L Not Available [address] [facility], [place], [address], 03/22/2024 19:44:45 Result Notes None recorded. Problems Name Problem SNOMED Code Status Onset Date Resolution Date Notes Provider Name and Address Organization Details Recorded Time Viral gastroenteriti s 688603266 Active 2023 ERIC SURESH NP [address] , [place], [address], [place] - [facility] 4 20:10:01 Nausea and vomiting 45928005 Active 2023 ERIC SURESH NP [address] , [place], [address], [place] - [facility] 4 20:10:21 Diarrhea 13486578 Active 2023 ERIC SURESH NP [address] , [place], [address], [place] - [facility] 4 20:10:47 Acute gastritis 93838893 Active 2023 ERIC SURESH NP [address] , [place], [address], [place] - [facility] 4 [...] Avai lable Vitals Date Recorded Body height Body mass index (BMI) Body weight Oxygen saturation Oxygen saturation in Arterial blood by Pulse oximetry Heart rate Respiratory rate Body temperature Systolic blood pressure Diastolic blood pressure Provider Name and Address Organization Details Last Updated DateTime 160.02 cm 24.8 kg/m2 34806.9 3 g 99 % 99 % 99 /min 18 /min 97 [degF] 93 mm[Hg] 59 mm[Hg] Juvencio Davies PA - [facility] 19:39:58 Social History Question Answer Notes LastModified by Organizat ion Details LastModified Time Tobacco Smoking Status Never Smoker Juvencio hurt PA - [facility] 03/22/2024 19:43:13 Are You Currently Employed? Yes Information not available 03/22/2024 Have You Had [...] 19:42:49 Mother No current problems or disability [email or web address] ez Not available 03/22/2024 19:42:49 Medical History No medical history recorded. Gynecological History Statement/Question Response Is there any chance of ? No Obstetrics History GPAL:G 0 P 0 0 0 0 Immunizations Vaccine Type Date Status Note Provider Dominic e and Address Organization Details Recorded Time COVID-19, mRNA, LNP-S, PF, 30 mcg/0.3 mL dose 07/29/2020 completed Juvencio Davies null, PA - [facility] 03/22/2024 19:41:11 COVID-19, mRNA, LNP-S, PF, 30 mcg/0.3 mL dose 08/19/2020 completed Juvenciomayte Davies null, PA - [facility] 03/22/2024 19:41:12 COVID-19, mRNA, LNP-S, PF, 30 mcg/0.3 mL dose, lorena-sucrose 05/30/2021 completed Juvencio Davies null, PA - [facility] 03/22/2024 19:41:12 Tdap 10/12/2013 completed Juvencio hurt, PA - [facility] 03/22/2024 19:41:12 Past Encounters Encounter ID Performer Location Encounter Start Date Encounter Closed Date Diagnosis/Indication Diagnosis SNOMED-CT Code Diagnosis ICD10 Code Diagnosis Note [id number] [facility] [address] [place] [address] 03/15/2017 11:30:01 03/15/2017 12:38:47 [id number] [facility] [address] [place] [address] 12/09/2018 11:57:02 12/09/2018 13:11:27 [id number] [facility] [address] [address] 12/16/2020 14:44:33 12/16/2020 16:21:49 [id number] [address] [address] [place] [address] 10/19/2017 18:03:54 10/19/2017 18:39:46 [id number] [address] [address] [facility] [place] [address] 03/23/2019 17:40:37 03/23/2019 18:44:42 [id number] [facility] [address] [place] [address] 04/20/2020 18:05:29 04/20/2020 19:44:58 [id number] [address] [facility] [place] [address] 09/05/2017 09:49:31 09/05/2017 11:56:51 [id number] [facility] HAYWOOD [address] [address] [address] 03/22/2024 19:17:22 03/22/2024 20:14:01 Viral gastroenteritis 728867115 A08.4 Nausea and vomiting 1693 2000 R11.2 Diarrhea 04860037 R19.7 Acute gastritis 73952812 K29.00 Health Concerns Section Related Observation LastModified by Organization Detai ls LastModified Time None Recorded Concern Status LastModified by Organization Details LastModified Time None Recorded Advance Directives Directive None Recorded Payers Encounter Date Sequence Insurance Name Policy Number Policy Olivares Covered Member ID Olivares Member ID Guarantor Name 12/09/2018 1 [place] [facility] [id number] Kae J Chlastawa [id number] Kae Chlastawa 03/23/2019 1 [place] [facility] [place] [id number] Kae J Chlastawa [id number] Kae Chlastawa 04/20/2020 1 [place] [facility] [place] [place] [id number] Kae J Chlastawa [id number] Kae Chlastawa 12/16/2020 1 [place] [facility] [id number] Kae J Chlastawa [id number] Kae Chlastawa 03/22/2024 1 [place] [id number] Kae Cruz [id number] Kae Cruz Notes Date Note Type Note Provider Name and Address Organization Details Recorded Time 03/22/2024 text/html Nausea / Vomitin g UCReported bypatient.Severity :moderate Duration:1 days Onset/Timing:inter mittent Context:no one else with similar symptoms Alleviating Factors:nothing gives relief pt reports nausea, vomiting diarrheas after eating food yesterdayhas been able to drink small fluidshas been having epigastric pain ERIC SURESH NP [address] [place], [address], [place] - [facility] 03/22/2024 20:18:11 OBGyn Episode No OBEpisode recorded.
== END 2024-08-16 08:27 | disposition home or self-care (01) ==
PROVIDERS: PCP Internal Medicine; Visit Provider Nurse Practitioner Family
DX: R14.0 Abdominal distension (gaseous) (principal); R10.12 Left upper quadrant pain; K52.9 Noninfective gastroenteritis and colitis, unspecified; K59.01 Slow transit constipation; K21.9 Gastro-esophageal reflux disease without esophagitis
CPT/HCPCS: 99213

== ENCOUNTER → 2024-08-16 08:02 | Outpatient (BNVA) | payer BC, SELFPAY | PROVIDERS: PCP Internal Medicine; Visit Provider Nurse Practitioner Family | DX: Z13.89 Encounter for screening for other disorder (principal) ==

== ENCOUNTER 2024-10-21 16:00 | Outpatient (AMB) | payer BC, SELFPAY ==
--- OUTSIDE RECORDS SUMMARY | 2024-09-27 07:45 | XMS_ITS ---
Author Organization Joesph Feliz MD Address [address] [place], [place] [address] Care Team Providers Care Waterproofing Mixer Name Role Phone Joesph Feliz Primary Care Provider [phone] Allergies No Known Allergies REASON FOR VISIT cough x 18 days did start with a temp of 101.9, Video [phone], Went to Urgent Care 09-13-24 and [facility] 09-19-24 no treatment negative for Covid RSV FLU CXR was negative Medications Medication SIG (Take, Route, Frequency, Duration) Notes Start Date End Date Status Zithromax Z-Gumaro 250 MG 2 tablet on the irst day, then 1 tablet daily for 4 days Orally Once a day for 5 day(s) 09/27/2024 Active Hyoscyamine Sulfate ER 0.375 MG 1 tablet Orally every 12 hrs for 7 days 06/17/2023 Not-Taking Albuterol Sulfate HFA 108 (90 Base) MCG/ACT 1 puff as needed Inhalation every 4 hrs for 30 days 09/27/2024 Active Naratriptan HCl 2.5 MG 1 tablet as neede d one time Orally Once a day for 10 days 11/17/2018 Not-Taking Zyyfjnzhxn-IFSM-Lqjdygjk 50-325-40 MG 1 tablet as needed Orally every 4 hrs Active Problems Problem Type SNOMED Code ICD Code Onset Dates Problem Status W/U Status Risk Notes Problem Asthmatic bronchitis (630715153) Asthmatic bronchitis (J45.909) Active confirmed Vital Signs Height 64 in 09/27/2024 Weight 140 lbs 09/27/2024 BMI 24.03 kg/m2 09/27/2024 weight at home is 140 BP no t taken no temp Encounters Encounter Location Date Provider Diagnosis Joesph Feliz MD [address] [place] [id number] 09/27/2024 Joesph Feliz Asthmatic bronchitis J45.909 Assessments Encounter Date Diagnosis (ICD Code) Assessment Notes Treatment Notes Treatment Clinical Notes Section Notes 09/27/2024 Asthmatic bronchitis (ICD-10 - J45.909) patient verbalized understanding of medication and directions for use Plan Of Treatment Medication Medication Name Sig Start Date Stop Date Notes Zithromax Z-Gumaro 250 MG 2 tablet on the f irst day, then 1 tablet daily for 4 days Orally Once a day for 5 day(s) 09/27/2024 Albuterol Sulfate HFA 108 (9 0 Base) MCG/ACT 1 puff as needed Inhalation every 4 hrs for 30 days 09/27/2024 Treatment Notes Assessment Notes Asthmatic bronchitis patient verbalized understanding of medication and directions for use Next Appt Details Provider Name:Joesph baumann, 11/23/2024 07:30:00 AM, [address] [place] [address], [place] [address], [place], [place], [phone], Provider Name:Joesph baumann, 11/30/2024 01:00:00 PM, [address] [place] [address], [address], [phone], Progress Notes * MARILY DUMASDOB:[birth year] (33 yo F)Acc No.[id number]:09/27/2024 Patient: MARILY HERNANDEZ Provider: Dakotah Feliz MD :1990 A ge:33 Y S ex:Female Date:09/27/2024 Address:[address] [place], [place] [phone] Subjective: * Chief Complaints: * C ough x 18 days did start with a temp of 101.9Video [phone] to Urgent Care 09-13-24 and [facility] 09-19-24 no treatment negative for Covid RSV FLU CXR was negative * HPI: S ymptom(s): Telehealth L ocation of provider rendering services: [address], [address], L ocation of patient: a t address listed in demographics for today's visit, P atvidal identification confirmed using: AIDEE Cody ame, T elehealth method: V ideo conference where patient is visible to the provider of care, C onsent: P atient verbally consented to treatment, Patient verbally consented to billing insurance company, Patient informed of any privacy concerns related to method of visit, T otal time spend talking with patient (minutes) 1 8. patient is a 33 yo female video telehealth visit, 18 days of cough. severe sore throat in the beginning.had fever after one week to 101. then congestion in sinuses. * ROS: G eneral/Constitutional: Denies C hills. A dmits F atigue, c oughing.?Denies F ever. D enies H eadache. E NT: Patient denies d ecreased sense of smell, any loss of taste, sore throat. D enies S ore throat. R espiratory: Admits Charmaine ough. A dmits S hortness of breath at rest. A dmits S hortness of breath with exertion. D enies S putum production. D enies W heezing, a dmits. G astrointestinal: Denies D iarrhea. D enies N ausea. M usculoskeletal: Patient denies m uscle aches. P eripheral Vascular: Patient denies r ed and blue toes. * Medical History: * Surgical History: * Hospitalization/Major Diagno stic Procedure: * Medications: T lkeosApcgwywsts-VESN-Hhmflaou 50-325-40 MG Tablet 1 tablet as needed Orally every 4 hrs Taking Fnwaiexprk-VVKV-Qgfveorw 50-325-40 MG Tablet 1 tablet as needed Orally every 4 hrs Not-Taking/PRNHyoscyamine Sulfate ER 0.375 MG Tablet Extended Release 12 Hour 1 tablet Orally every 12 hrs Naratriptan HCl 2.5 MG Tablet 1 tablet as needed one time Orally Once a day Not-Taking/PRN Hyoscyamine Sulfate ER 0.375 MG Tablet Extended Release 12 Hour 1 tablet Orally every 12 hrs Not-Taking/PRN Naratriptan HCl 2.5 MG Tablet 1 tablet as needed one time Orally Once a day DiscontinuedImitrex 50 MG Tablet 1 tablet as needed, may take second dose at least 2 hours after first dose up to 4 tablets per day as needed Orally Once a day Relpax 20 MG Tablet 1 tablet Orally Once a day as needed Propranolol HCl ER 60 MG Capsule Extended Release 24 Hour 1 capsule Orally Once a day Medication List reviewed and reconciled with the patientDiscontinued Imitrex 50 MG Tablet 1 tablet as needed, may take second dose at least 2 hours after first dose up to 4 tablets per day as needed Orally Once a day Discontinued Relpax 20 MG Tablet 1 tablet Orally Once a day as needed Discontinued Propranolol HCl ER 60 MG Capsule Extended Release 24 Hour 1 capsule Orally Once a day Medication List reviewed and reconciled with the patient * Allergies: N .K.D.A.yes[Allergies Verified] Objective: * Vitals: H t: 64, Wt: 140, BMI:24.03, Wt-k.5. weight at home is 140 BP not taken no temp. * Examination: G eneral Examination: GENERAL APPEARANCE: c oughing tight cough. Assessment: * Assessment: 1. A sthmatic bronchitis - J45.909 (Primary) Plan: * Treatment: * Procedure Codes: * * Sign off status: Completed true * Provider: Dakotah Feliz MD Date: 0 09/27/2024 Generated for Virginia carrasco/Ezequiel/Lettyitting on: 0 10/21/2024 04:02 PM EDT History and Physical Notes * HPI (History of Present Illness) Category Sub-Category Detail Notes Category Not es Symptom(s) Telehealth Location of doctors hospital rendering services:: [address], [address] patient is a 33 yo female video telehealth visit, 18 days of cough. severe sore throat in the beginning.had fever after one week to 101. then congestion in sinuses Location of patient:: at address listed in demographics for today's visit Patient identification confirmed using:: Name, Telehealth method:: Video co nference where patient is visible to the provider of care Consent:: Patient verbally c onsented to treatment, Patient verbally consented to billing insurance company, Patient informed of any privacy concerns related to method of visit Total time spend talking with patient (m inutes): 18 Examination Category Sub-Category Detail Notes Category Not es General Examination GENERAL APPEARANCE: coughing tight cough
--- NOTE | 2024-10-21 16:03 | A.OFFVIS_ITS ---
Intake Visit Reasons: 3 month migraine Allergies No Known Allergies Allergy (Verified 08/16/24 08:05) Medication List - Last Reconciled 10/21/24 by Adalid Newman MD [id number] 50-325-40 mg 2 tabs PO DAILY PRN eletriptan 20 mg PO DAILY PRN levonorgestrel (Liletta) intrauterine multivitamin 1 tab PO DAILY propranolol ER 60 mg PO DAILY HPI Comments Details: 33 yo RH woman with headaches. She has been having headaches since she was 14. Frequency now was 2-3 a week, but many be not every week. It started with an aura of tunnel and blurred vision for 45 minutes leading to left eye severe pain with nausea. Each time it lasted for about 6 hours. No effect with light and noise. She has not found any medicine that could reduce the time of migraine. Sumatriptan caused side effects. Fiorecet helped a lot and she was happy. No side effects. Headaches were sporad ic and were happening 0-5 times a month. [facility] Medical History (Updated 10/21/24 @ 16:12 by Adalid Newman MD) Migraine with aura Chronic idiopathic constipation Irritable bowel syndrome with diarrhea Migraine Surgical History H/O wisdom tooth extraction Family History Maternal Grandmother Lung cancer Maternal Aunt Leukemia Social History Alcohol intake: current Alcohol intake frequency: a few times a week Patient Tobacco Use Status: Never used Tobacco Review of Systems Const Details: Constitutional:?No fever, chills, fatigue, weight loss, or night sweats. HEENT:?No headache, vision changes, hearing loss, nasal congestion, sore throat. Neurological:?No dizziness, syncope, seizures, numbness, tingling, weakness, tremors, memory loss. Psychiatric:?No anxiety, depression, mood swings, sleep disturbance, or hallucinations. Endocrine:?No heat/cold intolerance, polydipsia, polyuria, or hair/skin changes. Hematologic/Lymphatic:?No easy bruising, bleeding, or lymphadenopathy. Integumentary (Skin):?No rash, lesions, itching, or color changes. ? Physical Exam Neuro Other: Mental Status: Alert and oriented to person, place, and time. Normal attention. Normal spontaneous speech, fluency, and comprehension. No obvious issues with mood and memory. Affect is appropriate. Cranial Nerves: CN II: Visual cooper full to confrontation, visual acuity intact. CN III, IV, : Pupils equal, round, reactive to light and accommodation. Extraocular movements are normal. CN V: Facial sensation is normal. CN VII: Facial movements symmetrical. CN VIII: Hearing intact to bedside conversation is normal. CN IX, X: Palate elevates symmetrically. CN XI: Shoulder shrug and head turn symmetrical. CN XII: Tongue midline without atrophy or fasciculations. Extrapyramidal: Full facial expressions and blinking. No rigidity. Movements are appropriate with no tremor or abnormality. Speech: Normal; no dysarthria or tremor. Assessment & Plan Assessment & Plan (1) Migraine with aura: Comment: Meds tried: Sumatriptan and Eletriptan (side effects) Code(s): G43.109 - Migraine with aura, not intractable, without status migrainosus Category: Medical Qualifiers: Status migrainosus presence: without status migrainosus Intractability: not intractable Qualified Code(s): G43.109 - Migraine with aura, not intractable, without status migrainosus Plan Impression: a: Migraine with aura Rec: PRN Fiorecet 1-2 Coding Level of Care Code Est Pt Level 4 (19079) Diagnoses Migraine with aura and without status migrainosus, not intractable G43.109 Status migrainosus presence: without status migrainosus Intractability: not intractable
--- OUTSIDE RECORDS SUMMARY | 2024-10-21 16:03 | XMS_ITS ---
Author Name [facility] Organization Unknown Encounters Encounter Type Encounter Reason Primary Diagnosis Location Date Ambulatory [facility] ([facility] 03/22/2024
--- OUTSIDE RECORDS SUMMARY | 2024-10-21 16:03 | XMS_ITS | Patient Health Record ---
Author Organization [facility] Address [address] [place] [address] Care Team Providers Care Loan Review Manager Name Role Phone Joesph Feliz MD Primary Care Provider Jessica Tatum Unavailable [phone] Allergies No Known Allergies Reason For Referral [...] Insured Coverage Start Date Coverage End Date [facility] [id number] [place] [address] [id number] Kae Rose Self - patient is the insured Medical (General) History Medical History History ICD Code Back,Hip,and Knee pain covid-19 Headaches/Migraines Psoriasis/eczema Sciatica Chicken pox Shingles Surgical History Surgery Date(Month/Year)
--- OUTSIDE RECORDS SUMMARY | 2024-10-21 16:03 | XMS_ITS | Data Portability ---
Author Organization [facility] [address] Address [address] [place] [address] Care Team Providers Care Bedspread Cutter Hand Name Role Phone AAMIR CHONG Primary Care [...] Blood in Urine. Thank you for using [facility], please feel free to contact us if you have any questions or concerns. darvin Not available 03/22/2024 20:13:31 Plan of Treatment Reminders Order Date Submit Date Provider Last Modified By Organization Details Last Modified Time Details Appointments None recorded. Lab urinalysis, dipstick 2023 EMELI [address], [address] [place], [address], 20:16:39 test, urine 2023 EMELI [address] [address], [address] [place], [address], 20:16:59 Referral None recorded. Procedures None recorded. Surgeries None recorded. Imaging None recorded. Medication Orders Imodium A-D 2 mg tablet 2023 [id number], [address], [place], [id number], 4 20:13:40 ondansetron 4 mg disintegrat ing tablet 2023 [place] [id number], [address], [place], [id number], 4 20:13:42 omeprazole 40 mg capsule,del ayed release 2023 [id number], [address], [place], [id number], 4 20:13:42 Patient TargetsNo targets recorded. Patient Instructions Encounter Date Encounter Id Patient Instructions Last Modified By Organization Details Last Modified Time 03/22/2024 [id number] nausea and vomiting: care instructions ronchaga Not [...] urine Unknown Analyte negati ve Not Available [address], [address], 03/22/2024 19:45:17 03/22/20 24 03/22/2024 pregn ronaldo test, urine Unknown Analyte N Not Available [address], [address], 03/22/2024 19:45:17 03/22/20 24 03/22/2024 pregn ronaldo test, urine Unknown Analyte YES Not Available [address], [address], 03/22/2024 19:45:17 03/22/20 24 03/22/2024 urina lysis , dipst ick Unknown Analyte Normal = light yellow Not Available [address], [address], 03/22/2024 19:44:45 03/22/20 24 03/22/2024 urina lysis , dipst ick Unknown Analyte Normal = clear Not Available [address], [address], 03/22/2024 19:44:45 03/22/20 24 03/22/2024 urina lysis , dipst ick Unknown Analyte Normal = negati ve Not Available [facility] [address] [place] [address], [address], 03/22/2024 19:44:45 03/22/2003/22/2024 urina lysis , dipst ick Unknown Analyte Negati ve Not Available [facility] [address] [place] [address], [address], 03/22/2024 19:44:45 03/22/2003/22/2024 urina lysis , dipst ick Unknown Analyte Normal = Negati ve Not Available [facility] [address] [place] [address], [address], 03/22/2024 19:44:45 03/22/20 24 03/22/2024 urina lysis , dipst ick Unknown Analyte Negati ve Not Available [facility] [address] [place] [address], [address], 03/22/2024 19:44:45 03/22/2003/22/2024 urina lysis , dipst ick Unknown Analyte Normal = Negati ve Not Available [facility] [address] [place] [address], [address], 03/22/2024 19:44:45 03/22/20 24 03/22/2024 urina lysis , dipst ick Unknown Analyte Normal = 1.010, 1.015, 1.020 Not Available [facility] [address] [place] [address], [address], 03/22/2024 19:44:45 03/22/20 24 03/22/2024 urina lysis , dipst ick Unknown Analyte Normal = Negati ve Not Available [facility] [address] [place] [address], [address], 03/22/2024 19:44:45 03/22/2003/22/2024 urina lysis , dipst ick Unknown Analyte Small Not Available [facility] [address] [place] [address], [address], 03/22/2024 19:44:45 03/22/20 24 03/22/2024 urina lysis , dipst ick Unknown Analyte Normal = 6.5, 7.0, 7.5, 8.0 Not Available [facility] [address] [address] [place] [address], [address], 03/22/2024 19:44:45 03/22/2003/22/2024 urina lysis , dipst ick Unknown Analyte Normal = Negati ve Not Available [facility] [address] [place] [address], [address], 03/22/2024 19:44:45 03/22/20 24 03/22/2024 urina lysis , dipst ick Unknown Analyte Normal = 0.2, 1.0 Not Available [facility] [address] [place] [address], [address], 03/22/2024 19:44:45 03/22/20 24 03/22/2024 urina lysis , dipst ick Unknown Analyte Normal = Negati ve Not Available [facility] [address] [place] [address], [address], 03/22/2024 19:44:45 03/22/20 24 03/22/2024 urina lysis , dipst ick Unknown Analyte Negati ve Not Available [facility] [address] [place] [address], [address], 03/22/2024 19:44:45 03/22/20 24 03/22/2024 urina lysis , dipst ick Unknown Analyte Normal = Negati ve Not Available [facility] [address] [place] [address], [address], 03/22/2024 19:44:45 03/22/20 24 03/22/2024 urina lysis , dipst ick Unknown Analyte Negati ve Not Available [facility] [address] [place] [address], [address], 03/22/2024 19:44:45 03/22/20 24 03/22/2024 urina lysis , dipst ick Unknown Analyte Yellow Not Available [address], [address], 03/22/2024 19:44:45 03/22/2003/22/2024 urina lysis , dipst ick Unknown Analyte Clear Not Available [address], [address], 03/22/2024 19:44:45 03/22/20 24 03/22/2024 urina lysis , dipst ick Unknown Analyte Negati ve Not Available [facility] [address], [address], 03/22/2024 19:44:45 03/22/20 24 03/22/2024 urina lysis , dipst ick Unknown Analyte 1.015 Not Available [address], [address], 03/22/2024 19:44:45 03/22/20 24 03/22/2024 urina lysis , dipst ick Unknown Analyte 5.5 Not Available [address], [address], 03/22/2024 19:44:45 03/22/20 24 03/22/2024 urina lysis , dipst ick Unknown Analyte Negati ve Not Available [facility] [address], [address], 03/22/2024 19:44:45 03/22/2003/22/2024 urina lysis , dipst ick Unknown Analyte 0.2 E.U./d L Not Available [address] [place], [address], 03/22/2024 19:44:45 Result Notes None recorded. Problems Name Problem SNOMED Code Status Onset Date Resolution Date Notes Provider Name and Address Organization Details Recorded Time Viral gastroenteriti s 546767401 Active 2023 ERIC SURESH NP [address] , [place], [address], [place] - [facility] 4 20:10:01 Nausea and vomiting 90173889 Active 2023 ERIC SURESH NP [address] , [place], [address], [place] - [facility] 4 20:10:21 Diarrhea 22378934 Active 2023 ERIC SURESH NP [address] , [place], [address], [place] - [facility] 4 20:10:47 Acute gastritis 66264713 Active 2023 ERIC SURESH NP [address] [place], [address], [place] - [facility] 4 [...] Heart rate Respiratory rate Body temperature Systolic And Diastolic Provider Name and Address Organization Details Last Updated DateTime 4 160.02 cm 24.8 kg/m2 95733.9 3 g 99 % 99 % 99 /min 18 /min 97 [degF] 93/59 mm[Hg] Juvencio SUBRAMANIAN - [facility] 19:39:58 Social History Question Answer Notes LastModified by Organizat ion Details LastModified Time Tobacco Smoking Status Never Smoker Juvencio hurt [place] - [facility] 03/22/2024 19:43:13 Have You Had A Flu Shot This Season? No Information not available 03/22/2024 If No, Would You Like A Flu Shot Today? No Information not available 03/22/2024 What Is Your Water Source? City Information not available 03/22/2024 What Is Your Heat Source? Gas Information not available 03/22/2024 What Is Your Relationship Status? Single Information not available 03/22/2024 Have You Recently Traveled Abroad? No Information not available 03/22/2024 Sex: Unknown Functional Status Question Answer Note LastModified by Organizat ion Details LastModified Time Do you use any illicit or recreational drugs? No Information not available 03/22/2024 Are you currently employed? Yes Information not available 03/22/2024 Mental Status None recorded. Family History Relationship [...] [facility] 03/22/2024 19:41:12 Tdap 10/12/2013 completed Juvenciomayte Davies null, [place] - [facility] 03/22/2024 19:41:12 Past Encounters Encounter ID Performer Location Encounter Start Date Encounter Closed Date Diagnosis/Indication Diagnosis SNOMED-CT Code Diagnosis ICD10 Code Diagnosis Note [id number] [facility] [address] [place] [address] 03/15/2017 11:30:01 03/15/2017 12:38:47 [id number] [facility] [address] [place] [address] 12/09/2018 11:57:02 12/09/2018 13:11:27 [id number] [address] [address] [address] 12/16/2020 14:44:33 12/16/2020 16:21:49 [id number] [facility] [place] [address] 10/19/2017 18:03:54 10/19/2017 18:39:46 [id number] [facility] [facility] [address] [place] [address] 03/23/2019 17:40:37 03/23/2019 18:44:42 [id number] [facility] _[address] [address] 04/20/2020 18:05:29 04/20/2020 19:44:58 [id number] [address] [facility] [address] [place] [address] 09/05/2017 09:49:31 09/05/2017 11:56:51 [id number] MORIS HAYWOOD [address] [address] 03/22/2024 19:17:22 03/22/2024 20:14:01 Viral gastroenteritis 496353797 A08.4 Nausea and vomiting 1693 2000 R11.2 Diarrhea 46913924 R19.7 Acute gastritis 92001386 K29.00 Health Concerns Section Related Observation LastModified by Organization Detai ls LastModified Time None Recorded Concern Status LastModified by Organization Details LastModified Time None Recorded Advance Directives Directive None Recorded Payers Insurance Date Sequence Insurance Name Policy Number Policy Olivares Covered Member ID Olivares Member ID Guarantor Name 03/22/2024 1 [facility] (O) [id number] Kae Romanoastawa [id number] Kae Chlastawa 10/06/2023 1 [facility]: [facility] [id number] Kae Amanda Chlastawa [id number] Kae Chlastawa Notes Date Note Type [...] SURESH NP [address] [place], [address], [place] - [facility] 03/22/2024 20:18:11 OBGyn Episode No OBEpisode recorded.
== END 2024-10-21 16:13 | disposition home or self-care (01) ==
LOC: HO.HSM 16:00
PROVIDERS: PCP Internal Medicine; Visit Provider Psychiatry & Neurology Neurology
DX: G43.109 Migraine with aura, not intractable, without status migrainosus (principal)
CPT/HCPCS: 99214

== ENCOUNTER 2024-11-23 07:30 | Outpatient (REF) | payer BC, SELFPAY ==
--- OUTSIDE RECORDS SUMMARY | 2024-07-02 03:45 | XMS_ITS ---
Author Organization Joesph Feliz MD Address [address] [place], [place] [phone] Care Team Providers Care Buhr Dresser Name Role Phone Joesph Feliz Primary Care [...] Date Provider Diagnosis Joesph Feliz MD [address] [place], [place] [phone] 07/02/2024 Joesph Feliz Plan Of Treatment Next Appt Details Provider Name:Joesph baumann, 11/30/2024 01:00:00 PM, [address], [address], [place], [place], [phone], Progress Notes * MARILY DUMASDOB:[birth year] (33 yo F)Acc No.[id number]:07/02/2024 Progress Notes Patient: MARILY HERNANDEZ Provider: Dakotah Feliz MD :1990 A ge:33 Y S ex:Female Date:07/02/2024 Address:[address] [place], [place] [phone] Subjective: * Chief Complaints: * 1 . [...] MD Date: 0 07/02/2024 Generated for Virginia carrasco/Ezequiel/Lettyitting on: 0 11/23/2024 11:10 AM EDT History and Physical Notes * HPI (History of Present Illness) Category Sub-Category Detail Notes Category Not es Symptom(s) patient is a 33 yo female here fr one month follow up visit
[2024-11-23 10:11] LABS: MANUAL DIFF FLAG NO
[2024-11-23 10:27] LABS: Appearance Urine Clear; Glucose Urine UA Negative (Negative); PH 5.5 (5.0-9.0); Specific Gravity - Urine 1.025 (1.005-1.025); UMIC TRIGGER UACC YES
[2024-11-23 10:36] LABS: Hematocrit 39.8 % (37.0-47.0); Hemoglobin 13.6 g/dl (12.0-16.0); Imm Gran Abs Auto 0.02 X10*3/uL (0.00-0.03); Imm Gran Pct Auto 0.4 % (0.0-0.4); Lymphocytes Absolute Auto 1.8 X10*3/uL (1.2-4.9); Mean Corpuscular HGB Conc 34.2 g/dl (31.0-35.0); Mean Corpuscular Hemoglobin 31.9 pg (27.0-33.0); Mean Corpuscular Volume 93.4 fL (80.0-98.0); NRBC Abs Auto 0.000 X10*3/uL (0.0-0.012); NRBC Pct Auto 0.0 /100WBC (0.0-0.2); Platelet Count 222 X10*3/uL (160-400); Red Blood Count 4.26 X10*6/uL (4.20-5.50); White Blood Count 5.5 X10*3/uL (4.8-10.8)
[2024-11-23 10:46] LABS: Alanine Aminotransferase 13 U/L (0-31); Albumin Level 4.3 g/dL (3.5-5.0); Alkaline Phosphatase 53 U/L (39-117); Anion Gap 12 (12-20); Aspartate Amino Transferase 23 U/L (5-31); Blood Urea Nitrogen 13 mg/dL (9-16); Calcium 8.9 mg/dL (8.4-10.2); Carbon Dioxide 26 mmol/L (22-29); Chloride 106 mmol/L (96-108); Cholesterol 143 mg/dL (<200); Estimated Glomerular Filt Rate > 60; HDL Cholesterol 79 mg/dL (>40); Potassium 4.0 mmol/L (3.3-5.1); Sodium 140 mmol/L (135-145); Total Protein 6.7 g/dL (6.5-8.0); Triglycerides 45 mg/dL (<150)
--- OUTSIDE RECORDS SUMMARY | 2024-11-23 11:10 | XMS_ITS | Clinical Summary ---
Author Organization [facility] Address [address] [place] [address] Care Team Providers Care Turret Lathe Tender Name Role Phone Sowmya Rivera MD Primary Care Provider Unavaila ble Allergies No known active allergies Medications Medication Sig Dispensed Refills Start Date End Date Status levonorgestrel (MIRENA) 20 MCG/24HR IUD 1 Each by Intrauterine route once. 0 Active Active Problems Problem Noted Date Anxiety and depression 05/30/2014 Dyshidrosis 10/12/2013 Migraine headache with aura 06/08/2013 Vitamin D insufficiency 06/08/2013 Immunizations Name Administration Dates Next Due Tdap 10/12/2013 Family History Relation Name Status Comments Brother Alive ADHD Father Alive not close to ri m-drug addiction Maternal Grandfather Alive heart i ssues Maternal Grandmother (Age 76) roberth ng cancer, DM, smoker since age 11 Mother Alive migraines Paternal Grandfather Alive ? Paternal Grandmother (Age ?) ? Social History Tobacco Use Types Packs/Day Years Used Date Smoking Tobacco: Never Smokeless Tobacco: Never Alcohol Use Standard Drinks/Week Comments Yes 2.5 (1 standard drink = 0.6 oz p ure alcohol) Sex Assigned at Date Recorded Not on file Last Filed Vital Signs Vital Sign Reading Time Taken Comments Blood Pressure 100/60 10/13/2015 1:13 PM EDT Pulse 80 10/13/2015 1:13 PM EDT Temperature 37.3 C (99.2 F) 01/03/2015 2:59 PM EDT Respiratory Rate 14 10/13/2015 1:13 PM EDT Oxygen Saturation 97% 01/03/2015 2:59 PM EDT Inhaled Oxygen Concentration - - Weight 63.5 kg (140 lb) 10/13/2015 1:13 PM EDT Height 164.5 cm (5' 4.75 ) 10/13/2015 1:13 PM ED T Body Mass Index 23.48 10/13/2015 1:13 PM EDT Plan of Treatment Health Maintenance Due Date Last Done Comments Covid-19 Vaccine (#1) 06/05/1991 TOBACCO CHECK/ADVISE 2008 CERVICAL CANCER SCREENING 10/13/20152012 (External Completion of test per patient (Patient reports normal results)) BASELINE HEALTH EXAM 18-39 10/12/2018 10/12/2013 CHOLESTEROL SCREENING 10/12/2018 10/12/2013 DTAP/TDAP/TD (2 - Td or Tdap) 10/13/2023 10/12/2013 BMI CHECK/ADVISE 04/14/2024 INFLUENZA (#1) 2024 PNEUMOCOCCAL VACCINE FOR HIG H RISK PATIENTS (#1) 12/04/2055 Care Teams Turret Lathe Tender Relationship Specialty Start Date End Date Sowmya Rivera MD PCP - General Internal Medicine 10/13/15
--- OUTSIDE RECORDS SUMMARY | 2024-11-23 11:10 | XMS_ITS | Patient Health Record ---
Author Organization [facility] Address [address] [place] [address] Care Team Providers Care Clinical Writer Name Role Phone Joesph Feliz MD Primary Care Provider Jessica Tatum Unavailable [phone] Allergies No Known Allergies Reason For Referral [...] Insured Coverage Start Date Coverage End Date [facility] [address] [place] [address] [id number] Kae Rose Self - patient is the insured Medical (General) History Medical History History ICD Code Back,Hip,and Knee pain covid-19 Headaches/Migraines Psoriasis/eczema Sciatica Chicken pox Shingles Surgical History Surgery Date(Month/Year)
== END 2024-11-23 07:31 | disposition home or self-care (01) ==
LOC: HO.LNP 07:30
PROVIDERS: Visit Provider Internal Medicine
DX: Z00.00 Encounter for general adult medical examination without abnormal findings (principal)
CPT/HCPCS: 80053; 80061; 81001; 85025

== ENCOUNTER 2024-11-29 08:41 | Outpatient (REF) | payer BC, SELFPAY ==
--- OUTSIDE RECORDS SUMMARY | 2024-07-02 03:45 | XMS_ITS ---
Author Organization Joesph Feliz MD Address [address] [place], [place] [id number] Care Team Providers Care Generator Switchboard Operator Name Role Phone Joesph Feliz Primary Care Provider Allergies No Known Allergies REASON FOR VISIT 1 month Medications Medication SIG (Take, Route, Frequency, Duration) Notes Start Date End Date Status Naratriptan HCl 2.5 MG 1 tablet as neede d one time Orally Once a day for 10 days 11/17/2018 Not-Taking Relpax 20 MG 1 tablet Orally Once a day as needed for 30 days 06/04/2024 Active Propranolol HCl ER 60 MG 1 capsule Orall y Once a day for 30 days 06/04/2024 Active Imitrex 50 MG 1 tablet as needed, may take second dose at least 2 hours after first dose up to 4 tablets per day as needed Orally Once a day for 30 day(s) 01/23/2024 Active Hyoscyamine Sulfate ER 0.375 MG 1 tablet Orally every 12 hrs for 7 days 06/17/2023 Not-Taking Encounters Encounter Location Date Provider Diagnosis Joesph Feliz MD [address] [place], [place] [phone] 07/02/2024 Joesph Feliz Plan Of Treatment Next Appt Details Provider Name:Joesph baumann, 11/30/2024 01:00:00 PM, [address], [address], [place], [place], [phone], Progress Notes * MARILY DUMASDOB:[birth year] (33 yo F)Acc No.[id number]:07/02/2024 Progress Notes Patient: MARILY HERNANDEZ Provider: Dakotah Feliz MD :1990 A ge:33 Y S ex:Female Date:07/02/2024 Address:[address] [place], [place] [phone] Subjective: * Chief Complaints: * 1 . 1 month. * HPI: S ymptom(s): patient is a 33 yo female here fr one month follow up visit. * ROS: G eneral/Constitutional: Denies C hills. D enies F atigue. D enies F ever. D enies H eadache. E NT: Denies S ore throat. R espiratory: Denies S hortness of breath at rest. D enies S hortness of breath with exertion. G astrointestinal: Denies D iarrhea. D enies N ausea. * Medical History: M edical History Verified. * Medications: T aking Imitrex 50 MG Tablet 1 tablet as needed, may take second dose at least 2 hours after first dose up to 4 tablets per day as needed Orally Once a day , Taking Relpax 20 MG Tablet 1 tablet Orally Once a day as needed , Taking Propranolol HCl ER 60 MG Capsule Extended Release 24 Hour 1 capsule Orally Once a day , Not-Taking/PRN Hyoscyamine Sulfate ER 0.375 MG Tablet Extended Release 12 Hour 1 tablet Orally every 12 hrs , Not-Taking/PRN Naratriptan HCl 2.5 MG Tablet 1 tablet as needed one time Orally Once a day * Allergies: N .K.D.A. Objective: * Vitals: Assessment: Plan: * Treatment: * * The named appointment provid er may or may not be the originator of this progress note, and it is not deemed complete until electronically signed by the appointment provider. Sign off status: Pending * Provider: Dakotah Feliz MD Date: 0 07/02/2024 Generated for Virginia carrasco/Ezequiel/Maria R on: 0 11/29/2024 09:01 AM EDT History and Physical Notes * HPI (History of Present Illness) Category Sub-Category Detail Notes Category Not es Symptom(s) patient is a 33 yo female here fr one month follow up visit
--- NOTE | ~2024-11-29 | FL_ITS ---
EXAMINATION: XR UPPER GI SERIES WITH BARIUM SWALLOW. CLINICAL INFORMATION: Gastroesophageal reflux disease without esophagitis. COMPARISON: None available. TECHNIQUE: Barium swallow with upper GI exam was performed in upright and lying position. FINDINGS: Following oral administration of saltine crackers coated with barium paste and barium tablet there is normal oral mastication and propagation bolus from the oral cavity through the pharynx, esophagus into stomach without any evidence of obstruction, narrowing or stricture. Following placing patient supine and prone lying the course, caliber and peristalsis of the stomach, duodenal bulb and sweep is normal. The mucosal pattern of stomach and duodenum is normal. There is mild gastroesophageal reflux without hiatal hernia. FLUOROSCOPY TIME: 2 minute 17 seconds DOSE AREA PRODUCT: 1358 uGy-m2 (microgray-meter squared) FL/FL upper GI w air w Ba Swallow IMPRESSION: Mild gastroesophageal reflux without hiatal hernia. Electronically signed by: Tee Valadez MD 11/29/2024 09:56 AM EDT
--- OUTSIDE RECORDS SUMMARY | 2024-11-29 09:02 | XMS_ITS | Clinical Summary ---
Author Organization [facility] Address [address] [place] [address] Care Team Providers Care Earring Maker Name Role Phone Sowmya Rivera MD Primary [...] Alive ADHD Father Alive not close to mi m-drug addiction Maternal Grandfather Alive heart i [...] H RISK PATIENTS (#1) 12/04/2055 Care Teams Earring Maker Relationship Specialty Start Date End Date Sowmya Rivera MD PCP - General Internal Medicine 10/13/15
--- OUTSIDE RECORDS SUMMARY | 2024-11-29 09:02 | XMS_ITS | Patient Health Record ---
Author Organization [facility] Address [address] [place] [address] Care Team Providers Care Tank Welder Name Role Phone Joesph Feliz MD Primary Care Provider Jessica Tatum Unavailable [phone] Allergies No Known Allergies Reason For Referral [...] Insured Coverage Start Date Coverage End Date [facility] [id number] [place] [address] [id number] Kae Rose Self - patient is the insured Medical (General) History Medical History History ICD Code Back,Hip,and Knee pain covid-19 Headaches/Migraines Psoriasis/eczema Sciatica Chicken pox Shingles Surgical History Surgery Date(Month/Year)
== END 2024-11-29 08:42 | disposition home or self-care (01) ==
LOC: HO.XRAY 08:41
PROVIDERS: PCP Internal Medicine; Visit Provider Nurse Practitioner Family
DX: K21.9 Gastro-esophageal reflux disease without esophagitis (principal)
CPT/HCPCS: 74246

== ENCOUNTER → 2024-11-29 08:42 | Outpatient (BNV) | payer BC, SELFPAY | PROVIDERS: PCP Internal Medicine; Visit Provider Radiology Diagnostic Radiology | DX: K21.9 Gastro-esophageal reflux disease without esophagitis (principal) | CPT/HCPCS: 74246 ==

== ENCOUNTER 2024-12-06 08:37 | Outpatient (AMB) | payer BC, SELFPAY ==
--- NOTE | 2024-12-06 08:39 | MHC.OFFVIS ---
Vital Signs 12/06/24 08:44 Height 5 ft 3 in Weight 140 lb BMI 24.8 BP 106/52 L Blood Pressure Location Rt brachial Position Sitting Pulse 76 Pulse Source Pulse Oximeter Pulse Oximetry (%) 98 Oxygen Delivery Method Room Air Intake Visit Reasons: 3 mo Intake Note: ESTABLISHED PATIENT for mgmt of constipation. Chief Complaint; Pt denies any significant GI changes or new sx since last visit. Pt only taking PPI PRN. Denies having any significant reflux episodes since last visit. Pt does have question about how one of her medications can be taken. Manager Primary Required: No Accompanied by: Self / Same As Patient Allergies No Known Allergies Allergy (Verified 12/06/24 08:40) HPI HPI 3 mo: Details: LAST VISIT: Postprandial abdominal bloating Abdominal pain, LUQ (left upper quadrant) Postprandial diarrhea Constipation GERD (gastroesophageal reflux disease) Plan Patient continues to have dysphagia specially with medications not so much with solid food or any liquids. I will send her for upper GI with barium swallow. To evaluate if her symptoms are caused by acid reflux, esophageal narrowing, achalasia, Schatzki ring. Occasional reflux, however it is controlled mainly with food. Continue low FODMAP diet, continue avoiding dietary triggers. Patient will return to the office in 4 months, sooner on as needed basis. She is agreeable to this plan and verbalizes understanding of instructions. She was given the opportunity to ask questions and all questions answered ? Thank you for allowing me to participate in her care Orders [place] upper GI w Ba Swallow Today K21.9 TODAY'S VISIT Patient is here today for follow-up. Patient reports that she has been doing well. She is avoiding dietary triggers. Staying away from spicy food. She is not using any PPI. Upper GI with barium swallow showed mild reflux. Patient reports that she has been managing on her own with and appropriate diet. [facility] Medical History Migraine with aura Chronic idiopathic constipation Irritable bowel syndrome with diarrhea Migraine Surgical History H/O wisdom tooth extraction Family History Maternal Grandmother Lung cancer Maternal Aunt Leukemia Social History Alcohol intake: current Alcohol intake frequency: a few times a week Patient Tobacco Use Status: Never used Tobacco Review of Systems Const Denies weight gain and Denies weight loss ENT Reports no additional complaints, Reports dysphagia and Denies odynophagia Card Reports no additional complaints Resp Reports no additional complaints GI Reports abdominal pain (Epigastric), Denies belching, Denies melena, Reports bloating, Denies change in bowel habits, Reports constipation, Reports GI cramping, Reports dysphagia, Denies excessive flatus, Denies dyspepsia, Reports heartburn (Occasional), Denies diarrhea, Reports loose stools, Denies nausea, Denies odynophagia and Denies vomiting Reports no additional complaints Musc Reports no additional complaints Neuro Reports no additional complaints Psych Reports no additional complaints Endo Reports no additional complaints Physical Exam Vital Signs: Last Vital Signs Pulse 76 12/06/24 08:44 BP 106/52 L 12/06/24 08:44 Pulse Ox 98 12/06/24 08:44 Oxygen Delivery Method Room Air 12/06/24 08:44 BMI result Body Mass Index 24.8 Const General: healthy appearing, no acute distress and well developed Nutritional Appearance: well nourished Orientation/consciousness: patient oriented x3 Resp Effort & Inspection: normal respiratory effort, able to speak in complete sentences, no tracheal deviation and symmetric chest movement Auscultation: clear to auscultation bilaterally Cardio Rate: regular rate GI Inspection: Yes normal to inspection and No distended Palpation (GI): Soft to palpation, not firm, nontender and No hepatosplenomegaly present Auscultation: normal bowel sounds General: Yes no CVA tenderness Back/Spine/Pelvis Back: no CVA tenderness Skin General skin exam: elasticity normal, turgor normal and dry skin Neuro General: patient oriented x3 Psych Appearance: grossly normal Mental Status: mental status grossly normal Results Reviewed Results Reviewed: UPPER GI: IMPRESSION: Mild gastroesophageal reflux without hiatal hernia. Electronically signed by: Tee Valadez MD 11/29/2024 09:56 AM EDT RP Assessment & Plan Assessment & Plan (1) Postprandial abdominal bloating: Code(s): R14.0 - Abdominal distension (gaseous) (2) Left upper quadrant abdominal pain: Code(s): R10.12 - Left upper quadrant pain (3) Gastroesophageal reflux disease: Code(s): K21.9 - Gastro-esophageal reflux disease without esophagitis Qualifiers: Esophagitis presence: esophagitis presence not specified Qualified Code(s): K21.9 - Gastro-esophageal reflux disease without esophagitis Plan Patient reports that she changed her diet and her symptoms are under control. Acid reflux only if she is not following diet and eats something spicy. She is moving her bowels better now. Follow-up as needed. Patient was encouraged to call our office if she will have any GI concerning symptoms. She is agreeable to this plan and verbalizes understanding of instructions. She was given the opportunity to ask questions and all questions answered. Thank you for allowing me to participate in her care Coding Level of Care Code Est Pt Level 3 (65608) Diagnoses Postprandial abdominal bloating R14.0 Left upper quadrant abdominal pain R10.12 Gastroesophageal reflux disease, unspecified whether esophagitis present K21.9 Esophagitis presence: esophagitis presence not specified Time Spent (min) 25 Comment 15 minutes spent with patient and additional 10 minutes spent reviewing her records
[2024-12-06 08:44] VITALS: BP 106/52; PULSE 76; O2SAT 98; BMI 24.8
--- OUTSIDE RECORDS SUMMARY | 2024-12-06 09:03 | XMS_ITS | Patient Health Record ---
Author Organization [facility] [employer] [facility] [employer] Address [address] [place] [address] Care Team Providers Care Party Plan Sales Agent Name Role Phone Joesph Feliz MD Primary Care Provider Jessica Tatum Unavailable [phone] Allergies No Known Allergies Reason For Referral [...] [facility] [id number] [place] [address] [id number] Kae Rose Self - patient is the insured Medical (General) History Medical History History ICD Code Back,Hip,and Knee pain covid-19 Headaches/Migraines Psoriasis/eczema Sciatica Chicken pox Shingles Surgical History Surgery Date(Month/Year)
== END 2024-12-06 09:37 | disposition home or self-care (01) ==
LOC: HO.HGI 08:38
PROVIDERS: PCP Internal Medicine; Visit Provider Nurse Practitioner Family
DX: R14.0 Abdominal distension (gaseous) (principal); R10.12 Left upper quadrant pain; K21.9 Gastro-esophageal reflux disease without esophagitis
CPT/HCPCS: 99213

== ENCOUNTER 2025-03-22 08:52 | Outpatient (AMB) | payer BC, SELFPAY ==
--- NOTE | 2025-03-22 08:54 | A.OFFVIS_ITS ---
Intake Visit Reasons: 6M , migranes Allergies No Known Allergies Allergy (Verified 12/06/24 08:40) Medication List - Last Reconciled 03/22/25 by Annabella Smith MD [id number]-mtutkqhazmzyi-[id number] 50-325-40 mg 2 tabs PO DAILY PRN levonorgestrel (Liletta) intrauterine HPI Comments Details: 33 yo RH woman with headaches. Had her braces off in October and since then only a couple of migraines since. She has been having headaches since she was 14. Frequency now was 2-3 a week, but many be not every week. It started with an aura of tunnel and blurred vision for 45 minutes leading to left eye severe pain with nausea. No vomting since College. Each time it usually lasts for about 6 hours. No photophobia or sonophobia. No triggers other than [employer] ( chocol ate and peanut butter). Mother gets migraines 1/ yr. Sumatriptan and another Triptan caused side effects. Using Fioricet which works in 2 hrs. No side effects. [facility] Medical History Migraine with aura Chronic idiopathic constipation Irritable bowel syndrome with diarrhea Migraine Surgical History H/O wisdom tooth extraction Family History Maternal Grandmother Lung cancer Maternal Aunt Leukemia Social History Alcohol intake: current Alcohol intake frequency: a few times a week Patient Tobacco Use Status: Never used Tobacco Review of Systems Const Denies weight gain and Denies weight loss ENT Reports no additional complaints, Reports dysphagia and Denies odynophagia Card Reports no additional complaints Resp Reports no additional complaints GI Reports abdominal pain (Epigastric), Denies belching, Denies melena, Reports bloating, Denies change in bowel habits, Reports constipation, Reports GI cramping, Reports dysphagia, Denies excessive flatus, Denies dyspepsia, Reports heartburn (Occasional), Denies diarrhea, Reports loose stools, Denies nausea, Denies odynophagia and Denies vomiting Reports no additional complaints Musc Reports no additional complaints Neuro Reports no additional complaints Psych Reports no additional complaints Endo Reports no additional complaints Physical Exam Neuro Other: Mental Status: Alert and oriented to person, place, and time. Normal attention. Normal spontaneous speech, fluency, and comprehension. No obvious issues with mood and memory. Affect is appropriate. Cranial Nerves: CN II: Visual cooper full to confrontation, visual acuity intact. CN III, IV, : Pupils equal, round, reactive to light and accommodation. Extraocular movements are normal. CN V: Facial sensation is normal. CN VII: Facial movements symmetrical. CN VIII: Hearing intact to bedside conversation is normal. CN IX, X: Palate elevates symmetrically. CN XI: Shoulder shrug and head turn symmetrical. CN XII: Tongue midline without atrophy or fasciculations. Extrapyramidal: Full facial expressions and blinking. No rigidity. Movements are appropriate with no tremor or abnormality. Speech: Normal; no dysarthria or tremor. Assessment & Plan Assessment & Plan (1) Migraine with aura: Comment: Meds tried: Sumatriptan and Eletriptan (side effects) Code(s): G43.109 - Migraine with aura, not intractable, without status migrainosus Category: Medical Qualifiers: Intractability: not intractable Status migrainosus presence: without status migrainosus Qualified Code(s): G43.109 - Migraine with aura, not intractable, without status migrainosus Plan Impression: a: Migraine with aura Rec: PRN Fiorecet 1-2 #20 given Medications: Changed From [id number]-xyrmrrwlxacyx-dfwg 50-325-40 mg 2 tabs PO DAILY PRN To [id number]-fjklookmzvarm-nyim 50-325-40 mg 2 tabs PO ONCE PRN 20 tabs 0RF Migraine Coding Level of Care Code Est Pt Level 4 (80554) Diagnoses Migraine with aura and without status migrainosus, not intractable G43.109 Intractability: not intractable Status migrainosus presence: without status migrainosus
== END 2025-03-22 09:10 | disposition home or self-care (01) ==
LOC: HO.HSM 08:53
PROVIDERS: PCP Internal Medicine; Visit Provider Psychiatry & Neurology Neurology
DX: G43.109 Migraine with aura, not intractable, without status migrainosus (principal)
CPT/HCPCS: 99214